=== PATIENT | male | born 1980 | race Caucasian/White ===

== ENCOUNTER → 2024-08-19 15:32 | Outpatient (REF) | payer BC, SELFPAY | LOC: HWRAD 15:32 | PROVIDERS: ATTENDING PHYSICIAN Internal Medicine Geriatric Medicine | DX: R05.3 Chronic cough (principal); U07.1 COVID-19 | CPT/HCPCS: 71046 ==

== ENCOUNTER 2024-08-20 16:22 | Emergency (ER) | payer BC, SELFPAY ==
[2024-08-20 16:28] VITALS: BP 143/95
[2024-08-20 17:00] VITALS: BP 155/92
[2024-08-20 17:06] LABS: % Basophils 0.7 % (0-2); % Eosinophils 0.4 % (0-6); % Immature Granulocytes 2.5 % (0-0.5); % Lymphocytes 10.4 % (20.5-51.1); % Monocytes 19.4 % (1.7-9.3); % Neutrophils 66.6 % (42.2-75.2); Absolute Basophils 0.1 10^3/uL (0-0.2); Absolute Immature Granulocytes 0.2 10^3/uL (0-0.05); Absolute Lymphocytes 0.8 10^3/uL (1.2-3.4); Absolute Monocytes 1.5 10^3/uL (0.1-0.6); Absolute Neutrophils 5.1 10^3/uL (1.4-6.5); Hemoglobin 12.1 g/dL (13.0-18.0); Mean Corp Hgb Conc. 33.6 g/dL (33.0-37.0); Mean Corpuscular Hgb 23.7 pg (27.0-31.0); Mean Corpuscular Volume 70.6 fL (80.0-94.0); Nucleated Red Blood Cells % 0 % (-); Platelet Count 288 10^3/uL (130-400); Red Cell Dist. Width 15.7 % (11.5-14.5); White Blood Cell Count 7.7 10^3/uL (4.8-10.8)
--- NOTE | 2024-08-20 17:25 | ED.GENMED ---
History of Present Illness
General
Chief Complaint: Breathing Problem
Time Seen by Provider: 08/20/24 16:41
History of Present Illness
History of Present Illness:
44-year-old man with history of chronic granulomatous disease followed by immunology at [facility] presenting to the emergency department with pneumonia. Patient states that 3 weeks ago he was diagnosed with COVID. He has had a persistent cough. 5 days
ago he had outpatient blood work which was unremarkable. However 3 days ago he developed fevers cough posttussive emesis and decreased p.o. He had an x-ray done yesterday which did show a right upper lobe pneumonia. His nursing educator called in a
prescription for Cipro for 3 weeks. He does have a new PCP who also called in Levaquin and told him to come in here for further evaluation. Patient states that with his pneumonia they are pretty aggressive as he does have history of fungal
pneumonias that usually require sputum cultures and bronchoscopy. However his nursing educator believes that this is likely bacterial infection. He does state that he does feel better than he did yesterday. He denies any chest pain or shortness of
breath. No nausea or vomiting. He has not needed to be admitted for his pneumonia in the past before. He does state that he has good follow-up with both his primary care doctor and nursing educator however they were just concerned given the fever
that started a few days ago and the chest x-ray
Past History
Past History
ED Past Medical History: Other (Pneumonia)
ED Past Surgical History: Other (Right lobectomy)
Social History
Living: with family
Employment: Employed
Phy Exam
Physical Exam
Physical Exam:
GENERAL: in no acute distress
HEENT: normocephalic, extraocular movements intact, moist oral mucosa
NECK: normal inspection
RESPIRATORY: no respiratory distress, crackles at the left upper lobe
CARDIOVASCULAR: regular rate and rhythm
ABDOMEN/: soft, non-distended, non-tender to palpation, no rebound or guarding
EXTREMITIES: non-tender, no edema/swelling
NEUROLOGIC: awake and alert, moves all extremities
SKIN: warm
Scores
Heart Failure Risk
Heart Failure Risk Score: Not Applicable
Course
Orders/Labs/Results
Orders:
Orders
08/20/24 16:46
CR Chest - 2 Views Urgent
Comment:
Reason For Exam: cough
08/20/24 17:01
Basic Metabolic Panel Urgent
Complete Blood Count/With Diff Urgent
Abnormal Lab Results
08/20/24
17:01
Hgb 12.1 L g/dL
(13.0-18.0)
Hct 36.0 L %
(39.0-52.0)
MCV 70.6 L fL
(80.0-94.0)
MCH 23.7 L pg
(27.0-31.0)
RDW 15.7 H %
(11.5-14.5)
Abs Immat Gran (auto) 0.2 H 10^3/uL
(0-0.05)
Absolute Lymphs (auto) 0.8 L 10^3/uL
(1.2-3.4)
Absolute Monos (auto) 1.5 H 10^3/uL
(0.1-0.6)
Immature Gran % 2.5 H %
(0-0.5)
Lymphocytes % 10.4 L %
(20.5-51.1)
Monocytes % 19.4 H %
(1.7-9.3)
Chloride 96 L mmol/L
(98-107)
Carbon Dioxide 21 L mmol/L
(22-30)
Glucose 103 H mg/dl
(70-99)
08/20/24 17:01
08/20/24 17:01
Vital Signs
Initial and Last Documented VS:
Initial Vital Signs
Temp Pulse Resp BP Pulse Ox
98.5 F 110 18 143/95 95
08/20/24 16:28 08/20/24 16:28 08/20/24 16:28 08/20/24 16:28 08/20/24 16:28
Last Documented Vital Signs
Temp Pulse Resp BP Pulse Ox
98.5 F 99 20 155/92 98
08/20/24 16:28 08/20/24 17:00 08/20/24 17:00 08/20/24 17:00 08/20/24 17:06
MDM/Problems Addressed
Differential Diagnosis Includes:
Patient is a 44-year-old male with history of chronic granulomatous disease on Bactrim and antifungal prophylactically presenting to the emergency department with pneumonia seen on outpatient chest x-ray. Vitals here notable for room air of 95%.
Exam does show left upper lobe crackles. Differential consists of pneumonia versus viral infection. Will check blood work and chest x-ray. Ambulatory pulse ox was normal. Patient does feel comfortable going home and states that he would not have
came in himself and is only coming at the advisory of his primary care doctor. He states that usually his pneumonias are like this and he can manage as outpatient. Given his history of fungal pneumonia and needing a bronchoscopy I did offer
patient admission for IV antibiotics and culture to make sure patient it is not a fungal pneumonia however patient and his nursing educator likely believe that his bacterial patient would prefer to be discharged home if everything else is okay.
*Critical Care Note
Total Time (30-74mins, 75-104mins- exclusive of procedures): Not Applicable
Update Note
Update Note:
Blood work notable for normal white count. His BMP is unremarkable. Chest x-ray per my interpretation does show left upper lobe pneumonia. This is consistent with a saw on x-ray yesterday. Patient advised to take the antibiotics as prescribed by
his nursing educator. Strict return precautions given.
ED Attending Note
-
Portions of this chart may have been created with voice recognition software.� Occasional wrong word or��sound alike� substitutions may have occurred due to the inherent limitations of voice recognition software.
Discharge Plan
Departure
Patient Disposition: Home (Routine Discharge)
Date of Disposition: 08/20/24
Time of Disposition: 18:34
Patient with high blood pressure during this ER visit?: No
Discharge Problem:
Pneumonia
Prescriptions:
No Action
diphenhydramine HCl [Banophen] 25 MG capsule
25 mg PO Q4HPRN PRN (Reason: allergic reaction) Qty: 10 0RF
prednisone 20 MG tablet
40 mg PO DAILY Qty: 8 0RF
famotidine 20 MG tablet
20 mg PO DAILY Qty: 10 0RF
epinephrine [EpiPen] 0.3 MG/0.3/SYRINGE auto-injector
0.3 mg IM PRN PRN (Reason: difficulty breathing) Qty: 1 0RF
Referrals:
Elvin Hooker MD [Family Provider] -
Activity Restrictions/Additional Instructions:
You were seen in the Emergency Department today for pneumonia. While you were here we performed blood work, which was reassuring. Please take the ciprofloxacin that your nursing educator prescribed
We would like for you to follow up with your primary care physician for further evaluation. If you experience fever, worsening of your symptoms, or develop any other new or concerning symptoms, please return to the Emergency Department immediately.
Please see the attached sheet for additional information.
Interventions
Interventions:
*Risk Screen - Suicide Last Done: 08/20/24 16:28
*General Assessment Last Done: 08/20/24 16:28
*Neglect/Abuse Screening Last Done: 08/20/24 16:28
ED- Fall Risk Assessment Last Done: 08/20/24 17:06
ED- Cardiac Assessment Last Done: 08/20/24 17:06
ED- Pulmonary Assessment Last Done: 08/20/24 17:06
Discharge Date and Time
Print Language: KISWAHILI
[2024-08-20 17:33] LABS: Blood Urea Nitrogen 15 mg/dl (9-20); Calcium 8.7 mg/dl (8.4-10.2); Carbon Dioxide 21 mmol/L (22-30); Chloride 96 mmol/L (98-107); Glucose 103 mg/dl (70-99); Potassium 3.7 mmol/L (3.5-5.1); Sodium 135 mmol/L (135-145); eGFR > 60.00
[2024-08-20 18:41] VITALS: BP 134/89
== END 2024-08-20 18:42 | disposition home or self-care (01) ==
LOC: EMR 16:22
PROVIDERS: EMERGENCY PHYSICIAN Student in an Organized Health Care Education/Training Program; FAMILY PHYSICIAN Internal Medicine Geriatric Medicine
DX: J18.9 Pneumonia, unspecified organism (principal); D71 Functional disorders of polymorphonuclear neutrophils; Z86.16 Personal history of COVID-19
CPT/HCPCS: 99283; 71046; 80048; 85025

== ENCOUNTER 2024-08-29 20:54 | Inpatient (IN) | payer BC, SELFPAY ==
[2024-08-29 17:17] VITALS: BP 123/82
[2024-08-29 17:47] LABS: % Basophils 0.7 % (0-2); % Eosinophils 1.5 % (0-6); % Lymphocytes 12.5 % (20.5-51.1); % Monocytes 7.8 % (1.7-9.3); % Neutrophils 73.5 % (42.2-75.2); Absolute Basophils 0.1 10^3/uL (0-0.2); Absolute Eosinophils 0.2 10^3/uL (0-0.7); Absolute Immature Granulocytes 0.6 10^3/uL (0-0.05); Absolute Lymphocytes 1.9 10^3/uL (1.2-3.4); Absolute Monocytes 1.2 10^3/uL (0.1-0.6); Hematocrit 38.5 % (39.0-52.0); Hemoglobin 12.6 g/dL (13.0-18.0); Mean Corp Hgb Conc. 32.7 g/dL (33.0-37.0); Mean Corpuscular Volume 73.5 fL (80.0-94.0); Mean Platelet Volume 9.6 fL (7.4-10.4); Nucleated Red Blood Cells % 0 % (-); Platelet Count 419 10^3/uL (130-400); Red Blood Cell Count 5.24 10^6/uL (4.70-6.10); Red Cell Dist. Width 16.2 % (11.5-14.5); White Blood Cell Count 14.9 10^3/uL (4.8-10.8)
[2024-08-29 17:59] LABS: ALT (SGPT) 49 U/L (0-50); AST (SGOT) 32 U/L (17-59); Albumin 4.1 g/dl (3.5-5.0); Alkaline Phosphatase 189 U/L (38-126); Blood Urea Nitrogen 11 mg/dl (9-20); Carbon Dioxide 21 mmol/L (22-30); Chloride 101 mmol/L (98-107); Glucose 101 mg/dl (70-99); Potassium 4.5 mmol/L (3.5-5.1); Sodium 139 mmol/L (135-145); Total Bilirubin 0.5 mg/dl (0.2-1.3); Total Protein 7.1 g/dl (6.3-8.2); eGFR > 60.00
[2024-08-29 18:28] VITALS: BMI 24.2
[2024-08-29 18:32] VITALS: BP 123/92
--- NOTE | 2024-08-29 18:32 | ED.GENMED ---
History of Present Illness
General
Chief Complaint: Breathing Problem
Time Seen by Provider: 08/29/24 18:32
History of Present Illness
History of Present Illness:
TIME OF INITIAL ENCOUNTER: 6:40 PM
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 Approximately 11 days ago, he was having fevers and had an abnormal chest x-ray
that confirmed pneumonia (his boiler riveter had already started him on antibiotics including Cipro and then Levaquin). Although he no longer has fevers, he still has ongoing shortness of breath. He is concerned that he may have a fungal infection.
EXAM:
GENERAL: Well appearing in no distress
HEENT: Moist oral mucosa
CARDIOVASCULAR: No murmurs, normal heart rate, regular rhythm, No chest wall tenderness
PULMONARY: No respiratory distress, breath sounds are clear and equal, I question some faint rales on the right side but no definite rales on the left side
ABDOMEN: Soft with no peritoneal signs, no tenderness
NEUROLOGIC: Excellent strength all extremities, no coordination deficits
PSYCHIATRIC: Appropriate mental status, normal insight and judgement
EXTREMITIES: Nontender, no edema, moves all extremities equally
SKIN: No rash, no lesions
NUMBER AND COMPLEXITY OF PROBLEMS ADDRESSED AT THE ENCOUNTER
� Chronic conditions affecting care: Chronic granulomatous disease had right lobectomy at age 1
� Acute Exacerbation and/or Progression of Chronic Illness: This is an acute problem
� Differential Diagnosis includes: Bacterial pneumonia, viral pneumonia, fungal pneumonia, mass
AMOUNT AND/OR COMPLEXITY OF DATA TO BE REVIEWED AND ANALYZED
� I performed an independent evaluation of and my interpretation is:
EKG:
CT: I personally reviewed CT imaging of the chest which shows large left upper lobe consolidation
X-rays: Chest x-ray shows moderate to large dense airspace consolidation consistent with pneumonia which is increased in size
Laboratory Studies: White count 14.9, hemoglobin 12.6, chemistries unremarkable however alk phos is 189
Other:
� Review of other/old records: I reviewed the notes from last ED visit as well as the x-ray as an outpatient that showed left upper lobe/lingular pneumonia
� Clinical information was obtained by an independent historian: I spoke to the at bedside
� Prescriptions/Medications Considered but not given:
� Further testing considered but not performed:
RISK OF COMPLICATIONS AND/OR MORBIDITY OR MORTALITY OF PATIENT MANAGEMENT
� Social determinants of health affecting care: Lives at home
� Discussion with other providers: I discussed case with Dr. Aguilar who recommends obtaining sputum�a small amount was obtained after induced with saline at approximately 8:30 PM
� Escalation of care including admission/observation vs risk of discharge considered: I have asked the nurse to obtain sputum; planning admission to the hospital for IV antibiotics however still awaiting sputum. CT imaging
obtained.
ANY OTHER UPDATES:
8:03 PM: I have asked hospitalist for admission to the hospital
Past History
Past History
ED Past Medical History: Other (Pneumonia)
ED Past Surgical History: Other (Right lobectomy)
Social History
Living: with family
Employment: Employed
Phy Exam
Physical Exam
Physical Exam:
See HPI
Scores
Heart Failure Risk
Heart Failure Risk Score: Not Applicable
Course
Orders/Labs/Results
Orders:
Orders
08/29/24 17:21
Chest [CR Chest - 2 Views ] Urgent
Comment: recent pna
Reason For Exam: cough
08/29/24 17:34
Complete Blood Count/With Diff Urgent
Comprehensive Metabolic Panel Urgent
08/29/24 18:55
CT Chest With Iv Contrast Urgent
Comment:
Reason For Exam: L consolidation failing outpt mngt
08/29/24 19:00
Sodium Chloride 3% INH [Sodium Chloride 3% For Inhalation] 1 vial INH R NOW STA
Induced Sputum [RESP] Urgent
Quantity: 1
08/29/24 20:06
Lactic Acid Q4H
Comment: CANCEL 2nd LACTIC ACID IF 1st LACTIC ACID IS LESS THAN 2
Blood Culture Q30M
JOSHUA Source: Blood/Venous
Specimen Description:
Blood Culture Q30M
JOSHUA Source: Blood/Venous
Specimen Description:
08/29/24 20:28
Admit/Transfer Patient As Directed
Co-Sign Provider:
Level of Care: Inpatient admission
Assign to:: Medical/Surgical
Physician / Group: suzie
Diagnosis: pneumonia
Reason for Hospitalization: pneumonia
Expected length of stay greater than two midnights?: Yes
ELOS- Estimated Length of Stay in days: 3
I certify the patient meets the requirements for IP care: Yes
Code Status As Directed
Resuscitation Status: Full Code
PRN Pain Medication Management As Directed
May give lesser potent ordered pain med per pt: Yes
preference::
Protocol:: Medication orders for pain may be administered in a
manner that supports deferring to patient preference
when the pt is:
- Requesting an ordered lesser potent pain medication.
Least to most potent pain medications are defined
as: acetaminophen < NSAID < tramadol < opioids
(morphine, oxycodone, hydromorphone).
- Requesting a lesser dose of the same medication IF
ORDERED.
- Requesting a less intrusive route of administration
if both routes are prescribed by the provider (PO <
IV).
08/29/24 20:36
INFECTIOUS DISEASE CONSULT Routine
Consulting Provider: Manuel Aguilar
Was physician already notified: Yes
PULMONARY CONSULT Routine
Consulting Provider: Rachid Robledo
Was physician already notified: Yes
08/29/24 21:01
Sputum Culture [Respiratory Culture/Gram Stain] Urgent
JOSHUA Source: Sputum
Specimen Description:
Date Specimen was Collected: 08/29/24
Time Specimen was Collected: 20:59
08/29/24 23:00
Lactic Acid Q4H
Comment: CANCEL 2nd LACTIC ACID IF 1st LACTIC ACID IS LESS THAN 2
Abnormal Lab Results
08/29/24
17:34
WBC 14.9 H 10^3/uL
(4.8-10.8)
Hgb 12.6 L g/dL
(13.0-18.0)
Hct 38.5 L %
(39.0-52.0)
MCV 73.5 L fL
(80.0-94.0)
MCH 24.0 L pg
(27.0-31.0)
MCHC 32.7 L g/dL
(33.0-37.0)
RDW 16.2 H %
(11.5-14.5)
Plt Count 419 H 10^3/uL
(130-400)
Abs Immat Gran (auto) 0.6 H 10^3/uL
(0-0.05)
Absolute Neuts (auto) 11.0 H 10^3/uL
(1.4-6.5)
Absolute Monos (auto) 1.2 H 10^3/uL
(0.1-0.6)
Immature Gran % 4.0 H %
(0-0.5)
Lymphocytes % 12.5 L %
(20.5-51.1)
Carbon Dioxide 21 L mmol/L
(22-30)
Glucose 101 H mg/dl
(70-99)
Alkaline Phosphatase 189 H U/L
(38-126)
08/29/24 17:34
08/29/24 17:34
Vital Signs
Initial and Last Documented VS:
Initial Vital Signs
Temp Pulse Resp BP Pulse Ox
98.5 F 85 18 123/82 98
08/29/24 17:17 08/29/24 17:17 08/29/24 17:17 08/29/24 17:17 08/29/24 17:17
Last Documented Vital Signs
Temp Pulse Resp BP Pulse Ox
98.5 F 85 18 123/86 98
08/29/24 17:17 08/29/24 17:17 08/29/24 17:17 08/29/24 21:00 08/29/24 17:17
*Critical Care Note
Total Time (30-74mins, 75-104mins- exclusive of procedures): Not Applicable
ED Attending Note
-
Portions of this chart may have been created with voice recognition software.� Occasional wrong word or��sound alike� substitutions may have occurred due to the inherent limitations of voice recognition software.
Discharge Plan
Departure
Patient Disposition: Admit
Date of Disposition: 08/29/24
Time of Disposition: 20:20
Presentation/result/management discussed w/ accepting MD/DO: Hospitalist
Discharge Problem:
Pneumonia
Interventions
Interventions:
*Risk Screen - Suicide Last Done: 08/29/24 18:28
*General Assessment Last Done: 08/29/24 18:28
*Neglect/Abuse Screening Last Done: 08/29/24 18:28
ED- Fall Risk Assessment Last Done: 08/29/24 18:28
*ED COVID-19 Vaccine History Last Done: 08/29/24 18:28
ED- Cardiac Assessment Last Done: 08/29/24 18:28
ED- Pulmonary Assessment Last Done: 08/29/24 18:28
[2024-08-29 19:00] VITALS: BP 131/90
[2024-08-29 20:08] VITALS: BP 119/78
--- NOTE | 2024-08-29 20:10 | HPS.HSE ---
Family Physician
-
Family Physician:
Chief Complaint
-
sob/cough
History of Present Illness
44 year old with history of chronic granulomatous disease/immunosuppressant chronically on Bactrim and and posaconazole and is known to an director of assessment at [facility] presented to us with cough, fever and sob. patient stated fever was 10 days ago. no
fever since then. he was noted to have dry cough, sob which is progressively getting worse. Approximately 11 days ago, had an abnormal chest x-ray that confirmed pneumonia,his director of assessment prescribed cipro then changed to Levaquin. no fever since
then, but cough and sob persisted. denied FOLEY, dizzy or syncopal episode. denied chest pain. denied abdominal pain,n,v,d,denied dysuria or hematuria.
chest x ray with MODERATE to SEVERE LEFT UPPER LOBE PNEUMONIA which appears to have mildly increased since 08/20/2024. admitting for further managment.
Medical History
Past Medical History
Past Medical History: Reports Other
Additional Past Medical History:
granulomatous disease
Past Surgical History: Reports Other
Additional Past Surgical History:
right lower lobe lobectomy
wisdom tooth extraction
Social History
Tobacco: Non-smoker
Alcohol: None
Drug: None
Personal:
Living: With Family
Family History
Family History: Not pertinent
Allergies / Home Medications
Allergies reflects when Allergies were last updated in [facility].
Home Medications with original date entered in [facility]
Allergy/Medication List:
Allergies
Allergy/AdvReac Type Severity Reaction Status Date / Time
itraconazole [From [facility]] Allergy Rash Verified 08/29/24 17:19
Home Medications
acetaminophen 500 mg tablet 1,000 mg PO Q6HPRN PRN mild pain/fever 08/29/24
ciprofloxacin HCl 500 mg tablet 500 mg PO BID 08/29/24
posaconazole 100 mg tablet,delayed release 300 mg PO HS 08/29/24
sulfamethoxazole 800 mg-trimethoprim 160 mg tablet 1 tab PO BID 08/29/24
Review of Systems
-
Constitutional: Reports No Symptoms
EENT: Reports No Symptoms
Respiratory: Reports Cough and Trouble Breathing
Cardiac: Reports No Symptoms
Abdomen/GI: Reports No Symptoms
: Reports No Symptoms
Musculoskeletal: Reports No Symptoms
Skin: Reports No Symptoms
Neurological: Reports No Symptoms
Endocrine: Reports No Symptoms
Hematologic/Lymphatic: Reports No Symptoms
Psych: Reports No Symptoms
Physical Exam
Vital Signs
Vital Signs
Temp Pulse Resp BP Pulse Ox
98.5 F 85 18 123/92 98
08/29/24 17:17 08/29/24 17:17 08/29/24 17:17 08/29/24 18:32 08/29/24 17:17
Physical Exam
General: Well Developed, Well Nourished and No Apparent Distress
HEENT: NormoCephalic, Moist mucous membranes and Atraumatic
Respiratory: Clear
Cardiac: S1/S2 and Regular Rhythm; No Murmur or Rub
GI: Soft, Non Tender, Non Distended and Normal Bowel Sounds; No Organomegaly
Rectal: Deferred by Provider
Musculoskeletal: No Clubbing, No Cyanosis and No Edema
Skin: No Rash
Neuro: AO x 3 and Nonfocal/grossly intact
Psych: Calm
Laboratory Results
-
08/29/24 17:34
08/29/24 17:34
Laboratory Results
Total Bilirubin 0.5 mg/dl (0.2-1.3) 08/29/24 17:34
AST 32 U/L (17-59) 08/29/24 17:34
ALT 49 U/L (0-50) 08/29/24 17:34
Alkaline Phosphatase 189 U/L (38-126) H 08/29/24 17:34
Data Reviewed
-
Diagnostic Radiology: Report Reviewed by me
Lab Data: Labs Reviewed by me
Impression/Plan
-
#community acquired pneumonia
-wbc 14.9
-chest x ray with MODERATE to SEVERE LEFT UPPER LOBE PNEUMONIA which appears to have mildly increased since 08/20/2024.
-chest CT pending
-blood culture sent from ER
-sputum culture
-obtain TB quantferon
-hold iv abx until CT resulted
-ID and pulmonology consulted
#chronic granulomatous disease
-s/p right lower lobectomy
-chronically on Bactrim and Posaconazole.
-follows [facility] director of assessment
-will continue Bactrim, and cipro
#DVT prophylaxis
-Lovenox
#CODE status
-full code
[2024-08-29] MEDS: SODIUM CHLORIDE 3% FOR INHALATION 1 VIAL INH (20:15)
[2024-08-29 20:25] LABS: Lactic Acid 0.8 mmol/L (0.7-2.0)
--- NOTE | 2024-08-29 20:35 | W.PN.UPDATE ---
Update Note
Progress Note Update
Patient seen in conjunction with JOSEPH. I agree with the findings on history and physical. I agree with the assessment and plan unless stated otherwise.
This is a 44-year-old male with history of chronic rheumatoid disease immunocompromise state status post childhood right lower lobectomy and H2, recurrent infections who has had fungal infection and is now currently maintained on posaconazole for at
least 5 years. He has been on Bactrim suppression for over 40 years. He reports he had COVID-19 infection 3 weeks ago and after resolution of these. He started having fevers and shortness of breath 10 days ago. At that time he was diagnosed with
a left upper lobe pneumonia and was started on Levaquin. After discussion between his primary care and patch setter the patient was placed on ciprofloxacin the second day. He has been on ciprofloxacin now for approximately 10 days. Symptoms
mostly been persistent cough and shortness of breath. He has denied fevers but patient has been taking Tylenol to help him sleep. He denies dizziness or lightheadedness. He denies any other symptoms. He has cough that is now relatively dry. He
denied any hemoptysis. He has no recent travels. He has no known sick contacts. He has no night sweats or weight loss. He has no prior history of TB.
The emergency department the patient was afebrile, blood pressure was stable at 120/78 with a pulse of 98% on room air. Chest x-ray shows large left upper lobe consolidation that has been present and appears increased since August 20. He has a
white count of 15,000 with a hemoglobin of 12 and plate count of 419. Electrolytes BUN/creatinine are within normal limits.
Assessment and plan
1. Non-resolving pneumonia - LEATHA pneumonia in immunocompromised patient who appears to be failing outpatient antibiotics. He has normal oxygenation, hemodynamically stable and non-toxic appearing. Suspect resistant bacteria vs fungal infection.
History of fungal pneumonia about 5 years ago for which he is on suppressive posaconazole.
- admit to med/surg
- continue current cipro, bactrm and posaconazole
- sputum gram stain, culture and afb
- quantiferon testing
- galactomannan
- CT chest, if diagnostic for fungal infection will discuss new antifungal with ID, otherwise continue current meds pending tissue sampling
- pulmonary consultation
- ID consulted and aware
DVT PPX - lovenox sq
Code status - Full
[2024-08-29 21:00] VITALS: BP 123/86
[2024-08-29] MEDS: BACTRIM DS 800 MG/160 MG 1 TABLET PO (22:28)
[2024-08-29] MEDS: CIPRO 500 MG PO (22:28)
[2024-08-29] MEDS: MUCINEX 600 MG PO (22:28)
[2024-08-29 22:30] VITALS: BP 133/75
[2024-08-29] MEDS: NON-FORMULARY ITEM 300 MG PO (22:54)
[2024-08-29] MEDS: ROBITUSSIN DM 5 ML PO (23:32)
[2024-08-30 06:00] VITALS: BMI 23.6
[2024-08-30 06:42] LABS: Hematocrit 36.5 % (39.0-52.0); Hemoglobin 11.9 g/dL (13.0-18.0); Mean Corp Hgb Conc. 32.6 g/dL (33.0-37.0); Mean Corpuscular Hgb 24.5 pg (27.0-31.0); Mean Corpuscular Volume 75.1 fL (80.0-94.0); Mean Platelet Volume 9.6 fL (7.4-10.4); Platelet Count 334 10^3/uL (130-400); Red Blood Cell Count 4.86 10^6/uL (4.70-6.10); Red Cell Dist. Width 16.1 % (11.5-14.5)
[2024-08-30 06:59] LABS: Blood Urea Nitrogen 11 mg/dl (9-20); Calcium 8.9 mg/dl (8.4-10.2); Carbon Dioxide 23 mmol/L (22-30); Chloride 101 mmol/L (98-107); Estimated Creatinine Clearance 96 ml/min; Glucose 102 mg/dl (70-99); Potassium 4.4 mmol/L (3.5-5.1); Sodium 136 mmol/L (135-145); eGFR > 60.00
[2024-08-30 07:25] VITALS: BP 115/74
--- NOTE | 2024-08-30 07:54 | W.PN.HOSP.TC ---
Today's Communication/Plan
-
cont abx as per ID
follow up cultures
prn antitussives
Assessment / Plan
Assessment / Plan
Physical Exam
General: Well Developed, Well Nourished and No Apparent Distress
HEENT: NormoCephalic, Moist mucous membranes and Atraumatic
Respiratory: Clear
Cardiac: S1/S2 and Regular Rhythm; No Murmur or Rub
GI: Soft, Non Tender, Non Distended and Normal Bowel Sounds; No Organomegaly
Musculoskeletal: No Clubbing, No Cyanosis and No Edema
Skin: No Rash
Neuro: AO x 3 and Nonfocal/grossly intact
Psych: Calm
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 onset 10 days ago. Approximately 11 days ago, had an abnormal chest x-ray that
confirmed pneumonia, his merchandise processor prescribed cipro then changed to Levaquin. no fever since then, but cough and sob persisted. Denied FOLEY, dizzy or syncopal episode. denied chest pain. denied abdominal pain,n,v,d,denied dysuria or hematuria.
chest x ray with MODERATE to SEVERE LEFT UPPER LOBE PNEUMONIA which appears to have mildly increased since 08/20/2024. admitted for further management.
#community acquired pneumonia
-wbc 14.9
-chest x ray with MODERATE to SEVERE LEFT UPPER LOBE PNEUMONIA which appears to have mildly increased since 08/20/2024.
-follow blood suputum cultures
-ID and Pulm eval appreciated
-cipro switched to IV ceftriaxone azithromycin as per ID
#chronic granulomatous disease
-s/p right lower lobectomy
-chronically on Bactrim and Posaconazole,cont
-follows [facility] merchandise processor
CT chest appreciated
1. LARGE 10.2 cm DENSE LEFT UPPER LOBE AIRSPACE CONSOLIDATION (predominantly in the superior segment of the lingula). Diagnostic possibilities are (1) SEVERE LEFT UPPER LOBE PNEUMONIA, (2) less likely an inflammatory airspace consolidation, or (3)
less likely lung cancer.
2. New 6.3 mm solid pulmonary nodule in the posterior segment of the right upper lobe.
3. Mild scarring in the lateral basilar segment of the right lower lobe at the site of a suspected previous pulmonary wedge resection.
4. Mild left-sided mediastinal and left hilar lymphadenopathy.
5. Moderate splenomegaly.
6. Multiple small low-attenuation lesions in the liver. Diagnostic possibilities are (1) benign hepatic tumors, (2) inflammatory or infectious hepatic lesions, or (3) hepatic malignancy (metastatic disease or lymphoma).
Repeat CT chest in 6 months as per pulm
Regarding Hepatic lesions will obtain CT Abd w/ IV and oral contrast to further evaluate prior to discharge. Holding off for now to minimize radiation and contrast exposure
#DVT prophylaxis
-Lovenox
#CODE status
-full code
I spent a total of 40 minutes with the patient or on the floor. More than 50% of this time involved counseling and coordination of care.
Anticipated Discharge: 24 - 48 hours
Subjective/Interval History
-
Date of Service: August 30, 2024
No acute distress. Appears comfortable at this time. Couging persists.
Objective Data
-
Labs:
Laboratory Results
08/30/24
06:13
WBC 11.0 H
Hgb 11.9 L
Hct 36.5 L
Plt Count 334 D
Sodium 136
Potassium 4.4
Chloride 101
Carbon Dioxide 23
BUN 11
Creatinine 0.9
Glucose 102 H
Calcium 8.9
Vital Signs:
Vital Signs
Temp Pulse Resp BP Pulse Ox
98 F 82 18 133/75 96
08/29/24 22:30 08/29/24 22:30 08/29/24 22:30 08/29/24 22:30 08/29/24 22:30
I&O
08/29/24 08/30/24 08/31/24
06:59 06:59 06:59
Intake Total 480 / 480
Balance 480 / 480
[2024-08-30] MEDS: CIPRO 500 MG PO (07:57)
[2024-08-30] MEDS: BACTRIM DS 800 MG/160 MG 1 TABLET PO ×2 (07:57→20:13)
[2024-08-30] MEDS: MUCINEX 600 MG PO ×2 (07:57→20:13)
--- NOTE | 2024-08-30 09:40 | CON.PUL ---
Consultation
Consultation Request
Date/Time Consultation Requested: 08/30/2024-8 AM
Date/Time Consultation Performed: 08/30/2024-9 AM
Requesting Provider: Hospitalist
Performing Provider: Dr. Torres
Reason for Consultation: Pneumonia
Medical History
-
Chief Complaint: Shortness of breath and cough
History of Present Illness:
44-year-old with history of chronic granulomatous disease/immunosuppressed chronically on Bactrim and antifungals followed by immunology at [facility] presented with 10 days of fever, cough, shortness of breath unresponsive to outpatient Cipro-admitted for
pneumonia/isolated to rule out TB-pulmonary consulted for pneumonia/shortness of breath/cough 08/30/2024.. The patient continues to complain of mostly nonproductive cough. He has mild shortness of breath. He does not complain of chest pain, chest
tightness, wheezing, productive cough, abdominal pain, nausea, weakness or lower extremity swelling.
Past Medical History
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 Right lower lobectomy. [place] teeth extraction.)
Social History
Tobacco: Non-smoker
Alcohol: None
Drug: None
Personal:
Living: With Family
Occupational Exposures: No known asbestos exposure
Environmental Exposures: No known tuberculosis exposure
Family History
Family History: Reviewed & Not Pertinent
Allergies / Home Medications
Allergies
Allergy/AdvReac Type Severity Reaction Status Date / Time
itraconazole [From Onmel] Allergy Rash Verified 08/29/24 17:19
Home Medications
�Medication �Instructions �Recorded �Confirmed �Last Taken �Type
acetaminophen 500 mg tablet 1,000 mg PO Q6HPRN PRN mild 08/29/24 08/29/24 08/29/24 01:30 History
pain/fever
ciprofloxacin HCl 500 mg tablet 500 mg PO BID 08/29/24 08/29/24 08/29/24 12:00 History
posaconazole 100 mg tablet,delayed 300 mg PO HS 08/29/24 08/29/24 08/28/24 22:00 History
release
sulfamethoxazole 800 1 tab PO BID 08/29/24 08/29/24 08/29/24 12:00 History
mg-trimethoprim 160 mg tablet
Review of Systems
-
Unable to Obtain full review of systems at this time due to: Other (Per HPI)
Vitals / Labs / Diagnostic Testing
Vital Signs
Temp Pulse Resp BP Pulse Ox
97.9 F 67 20 115/74 97
08/30/24 07:25 08/30/24 07:25 08/30/24 07:25 08/30/24 07:25 08/30/24 07:25
Lab Data
08/30/24 06:13
08/30/24 06:13
Microbiology
08/29/24 21:01 Sputum Respiratory Culture - Final
08/29/24 21:01 Sputum Gram Stain - Final
08/29/24 22:52 Urine Legionella Urinary Antigen - Final
Negative for Legionella pneumophila Serogroup 1 antigen.
A negative result does not rule out the possiblity of
Legionella infection due to other serogroups or species of
Legionella. Clinical correlation is recommended.
Diagnostic Testing:
Physical Exam
-
Exam:
Well-nourished and well-developed in no apparent distress
HEENT-atraumatic, normocephalic
Neck-supple, no JVD, no bruit
Heart-regular rate and rhythm-no murmurs, rubs or gallops
Chest-clear to auscultation, no wheezes, crackles
Back-no tenderness
Abdomen-soft, nontender, nondistended, no hepatosplenomegaly
Extremities-no cyanosis, clubbing, edema and good peripheral pulses
Integument-intact, no rashes, lesions or ecchymosis
Neurology-alert and oriented, nonfocal motor and sensory exam
Assessment
-
44-year-old with history of chronic granulomatous disease/immunosuppressed chronically on Bactrim and antifungals followed by immunology at [facility] presented with 10 days of fever, cough, shortness of breath unresponsive to outpatient Cipro-admitted for
pneumonia/isolated to rule out TB-pulmonary consulted for pneumonia/shortness of breath/cough 08/30/2024.
Community-acquired pneumonia unresponsive to outpatient Cipro in immunocompromised patient
Leukocytosis
Mild xphdvi-[id number]-[id number] 11.9
Conditions present prior to admission:
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
Bronchiectasis-mild left lower lobe
Pulmonary nodule-incidentally noted CT 2016-3 mm right middle lobe and new 6.3 mm pulmonary nodule right upper lobe 08/29/2024
Right lower lobectomy.
[place] teeth extraction.
Plan
History consistent with community-acquired pneumonia-likely bacterial, however, with his chronic granulomatous disease bacterial and fungal infections and even tuberculosis are considerations
Supplemental oxygen as needed
Isolation for now
Nebulizers if needed-currently not bronchospastic
Aspiration precautions
Antitussives as needed
Infectious disease evaluation-pending
Isolation
Sputum for AFB x 3
QuantiFERON test pending
Urine Legionella negative
Sputum culture 08/29/2024-few WBCs, mixed bacteria
Blood cultures negative
Empiric antibiotics-currently on chronic Bactrim in addition to Cipro and posaconazole chronically
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
Frequent signs of infection include lung, skin, lymph nodes and liver
Comment organisms include Aspergillus, staff aureus, Pseudomonas cepacia, Serratia, and nocardia
Chronic Bactrim and posaconazole continues
DVT prophylaxis-on Lovenox
Outpatient pulmonary follow-up of pneumonia and pulmonary nodules-recommend CT chest in 6 months
Diagnostic data:
Chest x-ray 08/19/2024-left upper lobe pneumonia
Chest x-ray 08/29/2024-moderate to severe left upper lobe pneumonia mildly increased since 08/20/2024
CT chest 08/03/2017-mild left lower lobe bronchiectasis, small noncalcified right middle lobe pulmonary nodule measuring 3 [address] chest 08/29/2024-large 10 cm area of dense left upper lobe airspace consolidation, new 6.3 mm solid pulmonary nodule right upper lobe, moderate splenomegaly, multiple small low-attenuation lesions in the liver
Data Reviewed
-
EKG: Report reviewed by me
Radiology: Image personally visualized and interpreted and Report reviewed by me
CT Scan: Image personally visualized and interpreted and Report reviewed by me
Medical Tests (Nuc Med, Echo etc): Report reviewed by me
Labs: Labs reviewed by me
Total Time Spent with Patient (in minutes): 65
--- NOTE | 2024-08-30 11:53 | CON.ID ---
Consultation
-
Date/Time Consultation Requested: August 29, 20242035
Date/Time Consultation Performed: August 30, 2024 1200
Requesting Provider: Dr. Nesbitt
Performing Provider: Dr. Natalia Noguera
Reason for Consultation: Pneumonia
Chief Complaint / Past History
Chief Complaint
Worsening cough.
History of Present Illness
History obtained from patient and review of outside records. 44-year-old male with history of chronic granulomatous disease diagnosed at age 5 due to frequent pneumonias, on prophylactic Bactrim, posaconazole who was diagnosed with COVID 19
infection 3 weeks ago when he developed dry cough and malaise. He was treated with Paxlovid and did improve. 2 weeks ago August 17 , the cough recurred with associated fever. He continued to be febrile the next day. His PCP ordered chest x-ray
which showed left upper lobe pneumonia. PCP prescribed levofloxacin. He took 1 dose of the levofloxacin on August 19. His ob/gyn physician also prescribed ciprofloxacin and recommended he be evaluated in the ER. He presented to [place] [facility] on
August 20. Chest x-ray again showed left upper lobe infiltrate. ED prescribed prednisone and he was discharged. Patient stopped the levofloxacin and continued on the ciprofloxacin. Fever resolved. However cough has not improved. He continues
to have dry cough which is getting worse to the point that he has posttussive emesis. He presented back to the ER on August 29. CT of the chest shows large 10.2 cm dense left upper lobe airspace consolidation predominantly in the superior
segment of the lingula. There are other small pulmonary nodules. Multiple small low-attenuation lesions in the liver. Patient denies ill contacts. He is up-to-date with his pneumonia vaccine. He lives with his , 14-year-old and 11-year-old
children. He works from home. He follows CGD measures - avoiding gardening/soil, hiking, swimming in fresh water. No history of travel to tuberculosis endemic areas. Last travel was to [place] in the summer. He has never been homeless or in
longterm. He takes abx prophylaxis with dental prcedures. No chills. Has chronic sweats x many years. 10 pound weight loss past 3 weeks from not eating as much. No FOLEY/sinus congestion/sorethroat. No abd pain. No diarrhea. No urinary sxs. No rash.
Past History
Additional Past Medical History:
Chronic Granulomatous Disease dx'd age 5, follows with [facility], on prophylactic posaconazole, Bactrim
Right lower lobectomy due to pneumonia, empyema, age 1
Bronchiectasis
Mild intermittent reactive airway disease
hx RUL lung nodules (09/2021) s/p bronch 11/08/2021 ([facility]), norm exam; AFB cx neg, fungal cx neg, aerobic cx light growth resp jorge.
04/30/2022 CT chest ([facility]): 'small focus of subsegmental atelectasis along the posterior aspect and inferior aspect of RUL and lingula'
COVID 19 infection (07/2024), treated
Allergy History:
itraconazole [From Onmel] Allergy (Verified 08/29/24 17:19)
Rash
Medications Reviewed: Yes
Current Antibiotics:
Cipro
Social History
Tobacco: Non-Smoker
Alcohol: None
Drug: None
Personal:
Living: With Family
Employment: Employed ([employer], works from home)
Family History
Family History: Not Pertinent
Review of Systems
Review of Systems
General: Change in Appetite
HEENT: Negative Sinus Problems, Headache or Pharyngitis
Respiratory: Dyspnea and Cough; Negative Sputum Production
Gasteroenterology: Weight Loss (10 lbs from poor appetite)
Genital / Urological: Negative Dysuria or Flank Pain
Skin / Hair / Nails: Negative Rash
Neurological: Negative Dizziness
All systems: All other systems were reviewed and were negative
Vital Signs
Temp Pulse Resp BP Pulse Ox
97.9 F 67 20 115/74 97
08/30/24 07:25 08/30/24 07:25 08/30/24 07:25 08/30/24 07:25 08/30/24 07:25
Physical Exam
Physical Exam
Constitutional: No Acute Distress and Comfortable
Head: Other (No frontal or maxillary sinus tenderness)
Eyes: No Conjunctival Hemorrhage and Sclera Anicteric
Cardiovascular: Regular Rate and S1/S2
Pulmonary: Clear; Negative Wheezes, Rales, Rhonchi or Coarse
Gastrointestinal: Soft, Non Tender, Non Distended and Normal Bowel Sounds
Genito-Urinary: Negative CVA Tenderness
Extremities: Negative Edema
Skin: Negative Rash
Neurological: AO x 3; Negative Meningeal Signs
Lab / Diagnostic Study Results
08/30/24 06:13
08/30/24 06:13
Abs Immat Gran (auto) 0.6 10^3/uL (0-0.05) H 08/29/24 17:34
Absolute Neuts (auto) 11.0 10^3/uL (1.4-6.5) H 08/29/24 17:34
Absolute Lymphs (auto) 1.9 10^3/uL (1.2-3.4) 08/29/24 17:34
Absolute Monos (auto) 1.2 10^3/uL (0.1-0.6) H 08/29/24 17:34
Absolute Basos (auto) 0.1 10^3/uL (0-0.2) 08/29/24 17:34
Immature Gran % 4.0 % (0-0.5) H 08/29/24 17:34
Neutrophils % 73.5 % (42.2-75.2) 08/29/24 17:34
Lymphocytes % 12.5 % (20.5-51.1) L 08/29/24 17:34
Monocytes % 7.8 % (1.7-9.3) 08/29/24 17:34
Eosinophils % 1.5 % (0-6) 08/29/24 17:34
Basophils % 0.7 % (0-2) 08/29/24 17:34
Lactic Acid Cancelled 08/29/24 23:00
Microbiology Results
Micro:
08/29/24 21:01 Respiratory Culture - Final
Sputum Gram Stain - Final
08/29/24 22:52 Legionella Urinary Antigen - Final
Urine Negative for Legionella pneumophila Serogroup 1 antigen.
A negative result does not rule out the possiblity of
Legionella infection due to other serogroups or species of
Legionella. Clinical correlation is recommended.
08/29/24 20:06 Blood Culture - Pending
Blood/Venous
08/29/24 20:06 Blood Culture - Pending
Blood/Venous
08/29/[address]:
1. LARGE 10.2 cm DENSE LEFT UPPER LOBE AIRSPACE CONSOLIDATION (predominantly in the superior segment of the lingula). Diagnostic possibilities are (1) SEVERE LEFT UPPER LOBE PNEUMONIA, (2) less likely an inflammatory airspace consolidation, or (3)
less likely lung cancer.
2. New 6.3 mm solid pulmonary nodule in the posterior segment of the right upper lobe.
3. Mild scarring in the lateral basilar segment of the right lower lobe at the site of a suspected previous pulmonary wedge resection.
4. Mild left-sided mediastinal and left hilar lymphadenopathy.
5. Moderate splenomegaly.
6. Multiple small low-attenuation lesions in the liver. Diagnostic possibilities are (1) benign hepatic tumors, (2) inflammatory or infectious hepatic lesions, or (3) hepatic malignancy (metastatic disease or lymphoma).
Assessment / Plan
# LEATHA pneumonia
# CGD on prophylactic posaconazole and Bactrim.
-sputum contaminated specimen
-Urine legionella Ag neg (not sensitive test)
-Add-on urine streptococcal antigen.
-dc outpt cipro
-Start ceftriaxone IV and po azithromycin.
-Monitor for improvement.
-DC airborne isolation. No risk factors for TB exposure. Also 2021 bronch AFB cx neg.
#New 6.3mm RUL nodule
-hx RUL lung nodules (CT 09/2021) s/p bronch 11/08/2021 ([facility]), norm exam; AFB cx neg, fungal cx neg, aerobic cx light growth resp jorge.
04/30/2022 CT chest ([facility]): 'small focus of subsegmental atelectasis along the posterior aspect and inferior aspect of RUL and lingula'
- Pulm following
#New multiple small hepatic lesions and splenomegaly.
-04/30/2022 CT chest: upper abdomen unremarkalbe.
-Consider CT abd/pelvis.
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
Chronic Granulomatous Disease dx'd age 5, follows with [facility], on prophylactic posaconazole, Bactrim
Right lower lobectomy due to pneumonia, empyema, age 1
Bronchiectasis
Mild intermittent reactive airway disease
hx RUL lung nodules (09/2021) s/p bronch 11/08/2021 ([facility]), norm exam; AFB cx neg, fungal cx neg, aerobic cx light growth resp jorge.
04/30/2022 CT chest ([facility]): 'small focus of subsegmental atelectasis along the posterior aspect and inferior aspect of RUL and lingula'
COVID 19 infection (07/2024), treated
Care Review
Plan reviewed with: Physician (Dr. Prado)
[2024-08-30 12:26] VITALS: BMI 23.6
[2024-08-30] MEDS: ZITHROMAX 500 MG PO (13:51)
[2024-08-30] MEDS: STERILE WATER FOR INJECTION 20 ML IV (13:51)
[2024-08-30] MEDS: ROCEPHIN 2000 MG IV (13:51)
[2024-08-30 15:15] VITALS: BP 99/72
[2024-08-30] MEDS: LOVENOX 40 MG SC (17:31)
[2024-08-30] MEDS: NON-FORMULARY ITEM 300 MG PO (21:22)
[2024-08-30 23:38] VITALS: BP 133/82
[2024-08-31 06:46] LABS: Hematocrit 39.7 % (39.0-52.0); Hemoglobin 12.7 g/dL (13.0-18.0); Mean Corpuscular Hgb 24.1 pg (27.0-31.0); Mean Corpuscular Volume 75.3 fL (80.0-94.0); Mean Platelet Volume 9.7 fL (7.4-10.4); Platelet Count 431 10^3/uL (130-400); Red Blood Cell Count 5.27 10^6/uL (4.70-6.10); Red Cell Dist. Width 16.1 % (11.5-14.5); White Blood Cell Count 13.2 10^3/uL (4.8-10.8)
[2024-08-31 07:07] LABS: Calcium 9.3 mg/dl (8.4-10.2); Glucose 98 mg/dl (70-99); Potassium 4.7 mmol/L (3.5-5.1)
[2024-08-31 07:17] LABS: Blood Urea Nitrogen 13 mg/dl (9-20); Carbon Dioxide 23 mmol/L (22-30); Chloride 98 mmol/L (98-107); Estimated Creatinine Clearance 96 ml/min; Sodium 137 mmol/L (135-145); eGFR > 60.00
[2024-08-31 07:25] VITALS: BP 116/75
[2024-08-31] MEDS: ZITHROMAX 500 MG PO (07:48)
[2024-08-31] MEDS: BACTRIM DS 800 MG/160 MG 1 TABLET PO ×2 (07:48→21:01)
[2024-08-31] MEDS: MUCINEX 600 MG PO ×2 (07:48→21:01)
--- NOTE | 2024-08-31 08:17 | W.PN.HOSP.TC ---
Today's Communication/Plan
-
cont abx as per ID
check CT abd/pelvis w/ IV and oral contrast
Assessment / Plan
Assessment / Plan
Physical Exam
General: Well Developed, Well Nourished and No Apparent Distress
HEENT: NormoCephalic, Moist mucous membranes and Atraumatic
Respiratory: Clear
Cardiac: S1/S2 and Regular Rhythm; No Murmur or Rub
GI: Soft, Non Tender, Non Distended and Normal Bowel Sounds; No Organomegaly
Musculoskeletal: No Clubbing, No Cyanosis and No Edema
Skin: No Rash
Neuro: AO x 3 and Nonfocal/grossly intact
Psych: Calm
44M history of chronic granulomatous disease/immunosuppressant chronically on Bactrim and and posaconazole, follows painter plate at [place], p/w cough, fever and sob. onset 10 days ago. Approximately 11 days ago, had an abnormal chest x-ray that
confirmed pneumonia, his painter plate prescribed cipro then changed to Levaquin. no fever since then, but cough and sob persisted. Denied FOLEY, dizzy or syncopal episode. denied chest pain. denied abdominal pain,n,v,d,denied dysuria or hematuria.
chest x ray with MODERATE to SEVERE LEFT UPPER LOBE PNEUMONIA which appears to have mildly increased since 08/20/2024. admitted for further management.
#community acquired pneumonia
-wbc 14.9
-chest x ray with MODERATE to SEVERE LEFT UPPER LOBE PNEUMONIA which appears to have mildly increased since 08/20/2024.
-follow blood suputum cultures
-ID and Pulm eval appreciated
-cipro switched to IV ceftriaxone azithromycin as per ID
#chronic granulomatous disease
-s/p right lower lobectomy
-chronically on Bactrim and Posaconazole,cont
-follows [facility] painter plate
CT chest appreciated
1. LARGE 10.2 cm DENSE LEFT UPPER LOBE AIRSPACE CONSOLIDATION (predominantly in the superior segment of the lingula). Diagnostic possibilities are (1) SEVERE LEFT UPPER LOBE PNEUMONIA, (2) less likely an inflammatory airspace consolidation, or (3)
less likely lung cancer.
2. New 6.3 mm solid pulmonary nodule in the posterior segment of the right upper lobe.
3. Mild scarring in the lateral basilar segment of the right lower lobe at the site of a suspected previous pulmonary wedge resection.
4. Mild left-sided mediastinal and left hilar lymphadenopathy.
5. Moderate splenomegaly.
6. Multiple small low-attenuation lesions in the liver. Diagnostic possibilities are (1) benign hepatic tumors, (2) inflammatory or infectious hepatic lesions, or (3) hepatic malignancy (metastatic disease or lymphoma).
Repeat CT chest in 6 months as per pulm
check CT Abd w/ IV and oral contrast
#DVT prophylaxis
-Lovenox
#CODE status
-full code
I spent a total of 40 minutes with the patient or on the floor. More than 50% of this time involved counseling and coordination of care.
Anticipated Discharge: 24 - 48 hours
Subjective/Interval History
-
Date of Service: August 31, 2024
Patient notes improvement in overall symptoms though cough persists.
Objective Data
-
Labs:
Laboratory Results
08/31/24
06:08
WBC 13.2 H
Hgb 12.7 L
Hct 39.7
Plt Count 431 H D
Sodium 137
Potassium 4.7
Chloride 98
Carbon Dioxide 23
BUN 13
Creatinine 0.9
Glucose 98
Calcium 9.3
Vital Signs:
Vital Signs
Temp Pulse Resp BP Pulse Ox
98.2 F 75 16 133/82 98
08/30/24 23:38 08/30/24 23:38 08/30/24 23:38 08/30/24 23:38 08/30/24 23:38
I&O
08/30/24 08/31/24 09/01/24
06:59 06:59 06:59
Intake Total 480 / 480 1440 / 1440
Balance 480 / 480 1440 / 1440
--- NOTE | 2024-08-31 09:20 | W.PN.PUL.V3 ---
Today's Communication / Plan
-
Wean oxygen
Antitussives and mucolytic's as needed
Ceftriaxone and azithromycin continue in addition to Bactrim and posaconazole which are his outpatient prophylactic medications
Isolation discontinued
Assessment
-
44-year-old with history of chronic granulomatous disease/immunosuppressed chronically on Bactrim and antifungals followed by immunology at [facility] presented with 10 days of fever, cough, shortness of breath unresponsive to outpatient Cipro-admitted for
pneumonia/isolated to rule out TB-pulmonary consulted for pneumonia/shortness of breath/cough 08/30/2024.
Community-acquired pneumonia unresponsive to outpatient Cipro in immunocompromised patient
Leukocytosis
Mild xpfxue-oumekgikxu-swtlykyvns 11.9
Conditions present prior to admission:
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
Bronchiectasis-mild left lower lobe
Pulmonary nodule-incidentally noted CT 2016-3 mm right middle lobe and new 6.3 mm pulmonary nodule right upper lobe 08/29/2024
History bronchoscopy 11/08/20217816-[id number] exam, AFB fungal and cultures negative
Right lower lobectomy.
[place] teeth extraction.
Plan
History consistent with community-acquired pneumonia-likely bacterial, however, with his chronic granulomatous disease bacterial and fungal infections and even tuberculosis are considerations
Supplemental oxygen as needed
Isolation for now
Nebulizers if needed-currently not bronchospastic
Aspiration precautions
Antitussives as needed
Follow radiographically to ensure clearing
Infectious disease evaluation-pending
Isolation discontinued
Note: Bronchoscopy 10/2021 negative for AFB
QuantiFERON test pending
Urine Legionella negative
Sputum culture 08/29/2024-few WBCs, mixed bacteria
Blood cultures negative
Empiric antibiotics-currently on chronic Bactrim in addition to Cipro and posaconazole chronically
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
Frequent signs of infection include lung, skin, lymph nodes and liver
Comment organisms include Aspergillus, staff aureus, Pseudomonas cepacia, Serratia, and nocardia
Chronic Bactrim and posaconazole continues
He continues with gardening/soil, hiking, swimming in fresh water.
Patient contacted his hook up driver-no record of previous TB testing
DVT prophylaxis-on Lovenox
Outpatient pulmonary follow-up of pneumonia and pulmonary nodules-recommend CT chest in 6 months
Diagnostic data:
Chest x-ray 08/19/2024-left upper lobe pneumonia
Chest x-ray 08/29/2024-moderate to severe left upper lobe pneumonia mildly increased since 08/20/2024
CT chest 08/03/2017-mild left lower lobe bronchiectasis, small noncalcified right middle lobe pulmonary nodule measuring [address] chest 08/29/2024-large 10 cm area of dense left upper lobe airspace consolidation, new 6.3 mm solid pulmonary nodule right upper lobe, moderate splenomegaly, multiple small low-attenuation lesions in the liver
Subjective Data
-
Date of Service:
Date of Service: August 31, 2024
Chief Complaint: Pulmonary Follow Up and Dyspnea Follow Up
Subjective:
Still has a nonproductive cough, overall slightly better, no chest pain, shortness of breath or abdominal pain
Review of Systems
General: Other (Per HPI)
Objective Data
Data Reviewed
Vital Signs / I&O:
Vital Signs
Temp Pulse Resp BP Pulse Ox
98.4 F 74 18 116/75 99
08/31/24 07:25 08/31/24 07:25 08/31/24 07:25 08/31/24 07:25 08/31/24 07:25
Intake and Output
08/30/24 08/31/24 09/01/24
06:59 06:59 06:59
Intake Total 480 / 480 1440 / 1440
Balance 480 / 480 1440 / 1440
SaO2: 99
Physical Exam
General: Respiratory Distress (n) and Comfortable
HEENT: Normocephalic, Anicteric and Moist Mucous Membranes
Cardiovascular: Regular Rhythm
Respiratory: Wheeze (n), Crackles (Rare left basilar), Rhonchi (n), Non-Labored Respirations, Accessory Resp Muscle Use (n) and Stridor (n)
GI: Soft, Non Distended and Non Tender
Neurology: Awake, Alert and No Motor Deficits
Skin: Warm, Good Color, Cyanosis (n), Jaundice (n) and Rash (n)
Labs/Micro/Reports
Lab Data
08/31/24 06:08
08/31/24 06:08
Microbiology
08/29/24 20:06 Blood/Venous Blood Culture - Preliminary
No Growth in 24 hours- Final report to follow
08/29/24 20:06 Blood/Venous Blood Culture - Preliminary
No Growth in 24 hours- Final report to follow
08/29/24 22:52 Urine Legionella Urinary Antigen - Final
Negative for Legionella pneumophila Serogroup 1 antigen.
A negative result does not rule out the possiblity of
Legionella infection due to other serogroups or species of
Legionella. Clinical correlation is recommended.
08/29/24 22:52 Urine Streptococcus pneumoniae Antigen (M - Final
Negative for Streptococcus pneumoniae antigen.
A negative result does not exclude infection with
Streptococcus pneumoniae. Clinical correlation is
recommended.
08/29/24 21:01 Sputum Respiratory Culture - Final
08/29/24 21:01 Sputum Gram Stain - Final
[2024-08-31] MEDS: OMNIPAQUE 50 ML PO (10:16)
--- NOTE | 2024-08-31 12:10 | W.PN.ID1 ---
Date of Service
Date of Service: August 31, 2024
Today's Communication
Continue ceftriaxone/azithromycin.
CT a/p.
Assessment / Plan
# LEATHA pneumonia
# CGD on prophylactic posaconazole and Bactrim.
-sputum contaminated specimen
-Urine legionella Ag, Strep pneumo Ag neg (not sensitive test)
- Continue ceftriaxone IV and po azithromycin (d2)
-Monitor for improvement.
#New 6.3mm RUL nodule
-hx RUL lung nodules (CT 09/2021) s/p bronch 11/08/2021 ([facility]), norm exam; AFB cx neg, fungal cx neg, aerobic cx light growth resp jorge.
04/30/2022 CT chest ([facility]): 'small focus of subsegmental atelectasis along the posterior aspect and inferior aspect of RUL and lingula'
- Pulm following
#New multiple small hepatic lesions and splenomegaly.
-04/30/2022 CT chest: upper abdomen unremarkalbe.
-For CT abd/pelvis.
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
Chronic Granulomatous Disease dx'd age 5, follows with [facility], on prophylactic posaconazole, Bactrim
Right lower lobectomy due to pneumonia, empyema, age 1
Bronchiectasis
Mild intermittent reactive airway disease
hx RUL lung nodules (09/2021) s/p bronch 11/08/2021 ([facility]), norm exam; AFB cx neg, fungal cx neg, aerobic cx light growth resp jorge.
04/30/2022 CT chest ([facility]): 'small focus of subsegmental atelectasis along the posterior aspect and inferior aspect of RUL and lingula'
COVID 19 infection (07/2024), treated
Chief Complaint
-: Pneumonia
Subjective / Review of Systems
Dry cough is the same.
Overall feeling slightly better.
Vital Signs / Physical Exam
Vital Signs
Vital Signs
Temp Pulse Resp BP Pulse Ox
98.4 F 74 18 116/75 99
08/31/24 07:25 08/31/24 07:25 08/31/24 07:25 08/31/24 07:25 08/31/24 09:20
Physical Exam
Constitutional: No Acute Distress and Comfortable
Cardiovascular: Regular Rate and S1/S2
Pulmonary: Clear
Gastrointestinal: Soft, Non Tender, Non Distended and Normal Bowel Sounds
Genito-Urinary: Negative CVA Tenderness
Extremities: Negative Edema
Neurological: AO x 3
Objective Data
Lab Data
Lab Results
08/31/24 06:08
08/31/24 06:08
Estimated Creat Clear 96 ml/min 08/31/24 06:08
Lactic Acid Cancelled 08/29/24 23:00
Total Bilirubin 0.5 mg/dl (0.2-1.3) 08/29/24 17:34
AST 32 U/L (17-59) 08/29/24 17:34
ALT 49 U/L (0-50) 08/29/24 17:34
Alkaline Phosphatase 189 U/L (38-126) H 08/29/24 17:34
Most recent labs reviewed.
Micro Results:
08/29/24 20:06 Blood Culture - Preliminary
Blood/Venous No Growth in 24 hours- Final report to follow
08/29/24 20:06 Blood Culture - Preliminary
Blood/Venous No Growth in 24 hours- Final report to follow
08/29/24 22:52 Legionella Urinary Antigen - Final
Urine Negative for Legionella pneumophila Serogroup 1 antigen.
A negative result does not rule out the possiblity of
Legionella infection due to other serogroups or species of
Legionella. Clinical correlation is recommended.
Streptococcus pneumoniae Antigen (M - Final
Negative for Streptococcus pneumoniae antigen.
A negative result does not exclude infection with
Streptococcus pneumoniae. Clinical correlation is
recommended.
08/29/24 21:01 Respiratory Culture - Final
Sputum Gram Stain - Final
08/29/[address]:
1. LARGE 10.2 cm DENSE LEFT UPPER LOBE AIRSPACE CONSOLIDATION (predominantly in the superior segment of the lingula). Diagnostic possibilities are (1) SEVERE LEFT UPPER LOBE PNEUMONIA, (2) less likely an inflammatory airspace consolidation, or (3)
less likely lung cancer.
2. New 6.3 mm solid pulmonary nodule in the posterior segment of the right upper lobe.
3. Mild scarring in the lateral basilar segment of the right lower lobe at the site of a suspected previous pulmonary wedge resection.
4. Mild left-sided mediastinal and left hilar lymphadenopathy.
5. Moderate splenomegaly.
6. Multiple small low-attenuation lesions in the liver. Diagnostic possibilities are (1) benign hepatic tumors, (2) inflammatory or infectious hepatic lesions, or (3) hepatic malignancy (metastatic disease or lymphoma).
[2024-08-31] MEDS: ROCEPHIN 2000 MG IV (14:22)
[2024-08-31] MEDS: STERILE WATER FOR INJECTION 20 ML IV (14:22)
--- NOTE | 2024-08-31 16:55 | CM ---
Reviewed chart, met with patient to obtain information for assessment. Patient stated that he lives with his in a two story home with two steps to enter. He described himself as independent with all ADLs, personal care, dressing and bathing. He
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 He ambulates without device. He denied any DME at home.
Patient has never had VN services.
He has not been to a SNF.
Patient has a prescription plan and uses, [facility] in [place] on [address] for all of his medications.
His provider is, Nhung Arana.
Patient stated that he does not feel that he will have any needs and would like to return home when cleared for discharge.
Plan: Case management will continue to follow and assist with discharge planning. Home when stable.
[2024-08-31 17:00] VITALS: BP 118/68
[2024-08-31] MEDS: LOVENOX 40 MG SC (17:19)
[2024-08-31] MEDS: NON-FORMULARY ITEM 300 MG PO (21:04)
[2024-08-31] MEDS: ROBITUSSIN DM 5 ML PO (21:12)
[2024-08-31 22:30] VITALS: BP 133/78
[2024-09-01 07:03] LABS: Hematocrit 37.8 % (39.0-52.0); Hemoglobin 12.2 g/dL (13.0-18.0); Mean Corp Hgb Conc. 32.3 g/dL (33.0-37.0); Mean Corpuscular Hgb 24.1 pg (27.0-31.0); Mean Corpuscular Volume 74.7 fL (80.0-94.0); Mean Platelet Volume 9.8 fL (7.4-10.4); Platelet Count 327 10^3/uL (130-400); Red Blood Cell Count 5.06 10^6/uL (4.70-6.10)
[2024-09-01 07:20] LABS: Blood Urea Nitrogen 12 mg/dl (9-20); Calcium 8.9 mg/dl (8.4-10.2); Carbon Dioxide 24 mmol/L (22-30); Chloride 101 mmol/L (98-107); Estimated Creatinine Clearance 96 ml/min; Glucose 95 mg/dl (70-99); Potassium 4.5 mmol/L (3.5-5.1); Sodium 138 mmol/L (135-145); eGFR > 60.00
[2024-09-01 07:25] VITALS: BP 110/64
--- NOTE | 2024-09-01 07:38 | W.PN.HOSP.TC ---
Today's Communication/Plan
-
cont abx as per ID
check MRI abd w/wo contrast
Assessment / Plan
Assessment / Plan
Physical Exam
General: Well Developed, Well Nourished and No Apparent Distress
HEENT: NormoCephalic, Moist mucous membranes and Atraumatic
Respiratory: Clear
Cardiac: S1/S2 and Regular Rhythm; No Murmur or Rub
GI: Soft, Non Tender, Non Distended and Normal Bowel Sounds; No Organomegaly
Musculoskeletal: No Clubbing, No Cyanosis and No Edema
Skin: No Rash
Neuro: AO x 3 and Nonfocal/grossly intact
Psych: Calm
44M history of chronic granulomatous disease/immunosuppressant chronically on Bactrim and and posaconazole, follows social worker health services at [facility], p/w cough, fever and sob. onset 10 days ago. Approximately 11 days ago, had an abnormal chest x-ray that
confirmed pneumonia, his social worker health services prescribed cipro then changed to Levaquin. no fever since then, but cough and sob persisted. Denied FOLEY, dizzy or syncopal episode. denied chest pain. denied abdominal pain,n,v,d,denied dysuria or hematuria.
chest x ray with MODERATE to SEVERE LEFT UPPER LOBE PNEUMONIA which appears to have mildly increased since 08/20/2024. admitted for further management.
#community acquired pneumonia
-wbc 14.9
-chest x ray with MODERATE to SEVERE LEFT UPPER LOBE PNEUMONIA which appears to have mildly increased since 08/20/2024.
-follow blood suputum cultures
-ID and Pulm eval appreciated
-cipro switched to IV ceftriaxone azithromycin as per ID
#chronic granulomatous disease
-s/p right lower lobectomy
-chronically on Bactrim and Posaconazole,cont
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
CT chest appreciated
1. LARGE 10.2 cm DENSE LEFT UPPER LOBE AIRSPACE CONSOLIDATION (predominantly in the superior segment of the lingula). Diagnostic possibilities are (1) SEVERE LEFT UPPER LOBE PNEUMONIA, (2) less likely an inflammatory airspace consolidation, or (3)
less likely lung cancer.
2. New 6.3 mm solid pulmonary nodule in the posterior segment of the right upper lobe.
3. Mild scarring in the lateral basilar segment of the right lower lobe at the site of a suspected previous pulmonary wedge resection.
4. Mild left-sided mediastinal and left hilar lymphadenopathy.
5. Moderate splenomegaly.
6. Multiple small low-attenuation lesions in the liver. Diagnostic possibilities are (1) benign hepatic tumors, (2) inflammatory or infectious hepatic lesions, or (3) hepatic malignancy (metastatic disease or lymphoma).
Repeat CT chest in 6 months as per pulm
CT Abd/pelvis w/ IV and oral contrast appreciated hepatic lesions less likely malignant but not ruled out
Checking MRI abd w/wo IV contrast
#DVT prophylaxis
-Lovenox
#CODE status
-full code
I spent a total of 35 minutes with the patient or on the floor. More than 50% of this time involved counseling and coordination of care.
Anticipated Discharge: Within 24 hours
Subjective/Interval History
-
Date of Service: September 01, 2024
Patient reports overall improvement in symptoms though coughing persists.
Objective Data
-
Labs:
Laboratory Results
09/01/24
06:06
WBC 9.0
Hgb 12.2 L
Hct 37.8 L
Plt Count 327 D
Sodium 138
Potassium 4.5
Chloride 101
Carbon Dioxide 24
BUN 12
Creatinine 0.9
Glucose 95
Calcium 8.9
Vital Signs:
Vital Signs
Temp Pulse Resp BP Pulse Ox
98.3 F 80 16 133/78 96
08/31/24 22:30 08/31/24 22:30 08/31/24 22:30 08/31/24 22:30 08/31/24 22:30
I&O
11/09/01/24 09/02/24
06:59 06:59 06:59
Intake Total 1440 / 1440 360 / 360
Output Total 300 / 300
Balance 1440 / 1440 60 / 60
[2024-09-01] MEDS: BACTRIM DS 800 MG/160 MG 1 TABLET PO ×2 (08:14→21:18)
[2024-09-01] MEDS: ZITHROMAX 500 MG PO (08:14)
[2024-09-01] MEDS: MUCINEX 600 MG PO ×2 (08:14→21:18)
--- NOTE | 2024-09-01 10:44 | W.PN.PUL.V3 ---
Today's Communication / Plan
-
.
Antibiotics.
Increase activity.
Mucolytic's and antitussives as needed.
Outpatient pulmonary follow-up
Assessment
-
44-year-old with history of chronic granulomatous disease/immunosuppressed chronically on Bactrim and antifungals followed by immunology at [facility] presented with 10 days of fever, cough, shortness of breath unresponsive to outpatient Cipro-admitted for
pneumonia/isolated to rule out TB-pulmonary consulted for pneumonia/shortness of breath/cough 08/30/2024.
Community-acquired pneumonia unresponsive to outpatient Cipro in immunocompromised patient
Leukocytosis
Mild burvjo-nvfrdbwwid-chawvmcmns 11.9
Conditions present prior to admission:
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
Bronchiectasis-mild left lower lobe
Pulmonary nodule-incidentally noted CT 2016-3 mm right middle lobe and new 6.3 mm pulmonary nodule right upper lobe 08/29/2024
History bronchoscopy 11/08/20213260-Bjubxegob-euowcj exam, AFB fungal and cultures negative
Right lower lobectomy.
Festus teeth extraction.
Plan
History consistent with community-acquired pneumonia-likely bacterial, however, with his chronic granulomatous disease bacterial and fungal infections and even tuberculosis are considerations
Supplemental oxygen as needed
Isolation for now
Nebulizers if needed-currently not bronchospastic
Aspiration precautions
Antitussives as needed
Follow radiographically to ensure clearing
Infectious disease following-correspondence reviewed
Isolation discontinued
Note: Bronchoscopy 10/2021 negative for AFB
QuantiFERON test pending
Urine Legionella negative
Sputum culture 08/29/2024-few WBCs, mixed bacteria
Blood cultures negative
Empiric antibiotics-currently on chronic Bactrim in addition to Cipro and posaconazole chronically
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
Frequent signs of infection include lung, skin, lymph nodes and liver
Comment organisms include Aspergillus, staff aureus, Pseudomonas cepacia, Serratia, and nocardia
Chronic Bactrim and posaconazole continues
He continues with gardening/soil, hiking, swimming in fresh water.
Patient contacted his resident advisor-no record of previous TB testing
DVT prophylaxis-on Lovenox
Outpatient pulmonary follow-up of pneumonia and pulmonary nodules-recommend CT chest in 6 months
Diagnostic data:
Chest x-ray 08/19/2024-left upper lobe pneumonia
Chest x-ray 08/29/2024-moderate to severe left upper lobe pneumonia mildly increased since 08/20/2024
CT chest 08/03/2017-mild left lower lobe bronchiectasis, small noncalcified right middle lobe pulmonary nodule measuring [address] chest 08/29/2024-large 10 cm area of dense left upper lobe airspace consolidation, new 6.3 mm solid pulmonary nodule right upper lobe, moderate splenomegaly, multiple small low-attenuation lesions in the liver
Subjective Data
-
Date of Service:
Date of Service: September 01, 2024
Chief Complaint: Pulmonary Follow Up and Dyspnea Follow Up
Subjective:
Overall cough somewhat improved, no complaints of worsening shortness of breath, no chest pain or abdominal pain
Review of Systems
General: Other ( per HPI)
Objective Data
Data Reviewed
Vital Signs / I&O:
Vital Signs
Temp Pulse Resp BP Pulse Ox
98.4 F 84 17 110/64 100
09/01/24 07:25 09/01/24 07:25 09/01/24 07:25 09/01/24 07:25 09/01/24 07:25
Intake and Output
08/31/24 09/01/24 09/02/24
06:59 06:59 06:59
Intake Total 1440 / 1440 360 / 360
Output Total 300 / 300
Balance 1440 / 1440 60 / 60
SaO2: 100
Physical Exam
General: Respiratory Distress (n) and Comfortable
HEENT: Normocephalic, Anicteric and Moist Mucous Membranes
Cardiovascular: Regular Rhythm
Respiratory: Wheeze (n), Crackles (Rare left basilar), Rhonchi (n), Non-Labored Respirations, Accessory Resp Muscle Use (n) and Stridor (n)
GI: Soft, Non Distended and Non Tender
Neurology: Awake, Alert and No Motor Deficits
Skin: Warm, Good Color, Cyanosis (n), Jaundice (n) and Rash (n)
Labs/Micro/Reports
Lab Data
09/01/24 06:06
09/01/24 06:06
Microbiology
08/29/24 20:06 Blood/Venous Blood Culture - Preliminary
No Growth in 48 hours- Final report to follow
08/29/24 20:06 Blood/Venous Blood Culture - Preliminary
No Growth in 48 hours- Final report to follow
08/29/24 22:52 Urine Legionella Urinary Antigen - Final
Negative for Legionella pneumophila Serogroup 1 antigen.
A negative result does not rule out the possiblity of
Legionella infection due to other serogroups or species of
Legionella. Clinical correlation is recommended.
08/29/24 22:52 Urine Streptococcus pneumoniae Antigen (M - Final
Negative for Streptococcus pneumoniae antigen.
A negative result does not exclude infection with
Streptococcus pneumoniae. Clinical correlation is
recommended.
08/29/24 21:01 Sputum Respiratory Culture - Final
08/29/24 21:01 Sputum Gram Stain - Final
[2024-09-01 13:17] LABS: Iron 45 ug/dl (49-181)
[2024-09-01 13:28] LABS: Percent Saturation 18 % (20-50); Total Iron Binding Capacity 240 ug/dl (261-462)
--- NOTE | 2024-09-01 13:56 | W.PN.ID1 ---
Date of Service
Date of Service: September 01, 2024
Today's Communication
- Continue ceftriaxone IV and po azithromycin (d3)
-At time of discharge, transition to cefdinir 300mg po bid plus azithromycin 500mg po qd through 09/12/24.
-Repeat CXR in 4 to 6 weeks to follow improvement of LEATHA opacity.
Assessment / Plan
# LEATHA pneumonia
# CGD on prophylactic posaconazole and Bactrim.
-sputum contaminated specimen
-Urine legionella Ag, Strep pneumo Ag neg (not sensitive test)
- Continue ceftriaxone IV and po azithromycin (d3)
-At time of discharge, transition to cefdinir 300mg po bid plus azithromycin 500mg po qd through 09/12/24.
- Repeat CXR in 4 to 6 weeks to follow improvement of LEATHA opacity.
#New 6.3mm RUL nodule
-hx RUL lung nodules (CT 09/2021) s/p bronch 11/08/2021 ([facility]), AFB cx neg, fungal cx neg, aerobic cx light growth resp jorge.
04/30/2022 CT chest ([facility]): 'small focus of subsegmental atelectasis along the posterior aspect and inferior aspect of RUL and lingula'
- Pulm recommends CT in 6 months.
#New multiple small hepatic lesions and splenomegaly.
-04/30/2022 CT chest: upper abdomen unremarkable.
-08/31/2024 CT a/p: numerous subcm hypodense hepatic lesions
- For MRI abd, per hospitalist
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
Chronic Granulomatous Disease dx'd age 5, follows with [facility] [employer], on prophylactic posaconazole, Bactrim
Right lower lobectomy due to pneumonia, empyema, age 1
Bronchiectasis
Mild intermittent reactive airway disease
hx RUL lung nodules (09/2021) s/p bronch 11/08/2021 ([facility]), norm exam; AFB cx neg, fungal cx neg, aerobic cx light growth resp jorge.
04/30/2022 CT chest ([facility]): 'small focus of subsegmental atelectasis along the posterior aspect and inferior aspect of RUL and lingula'
COVID 19 infection (07/2024), treated
Chief Complaint
-: Pneumonia
Subjective / Review of Systems
He continues to feel better.
Cough also with some improvement.
Vital Signs / Physical Exam
Vital Signs
Vital Signs
Temp Pulse Resp BP Pulse Ox
98.4 F 84 17 110/64 100
09/01/24 07:25 09/01/24 07:25 09/01/24 07:25 09/01/24 07:25 09/01/24 10:44
Physical Exam
Constitutional: No Acute Distress and Comfortable
Cardiovascular: Regular Rate and S1/S2
Pulmonary: Clear
Gastrointestinal: Soft, Non Tender and Non Distended
Neurological: AO x 3
Objective Data
Lab Data
Lab Results
09/01/24 06:06
09/01/24 06:06
Estimated Creat Clear 96 ml/min 09/01/24 06:06
Lactic Acid Cancelled 08/29/24 23:00
Total Bilirubin 0.5 mg/dl (0.2-1.3) 08/29/24 17:34
AST 32 U/L (17-59) 08/29/24 17:34
ALT 49 U/L (0-50) 08/29/24 17:34
Alkaline Phosphatase 189 U/L (38-126) H 08/29/24 17:34
Most recent labs reviewed.
Micro Results:
08/29/24 20:06 Blood Culture - Preliminary
Blood/Venous No Growth in 48 hours- Final report to follow
08/29/24 20:06 Blood Culture - Preliminary
Blood/Venous No Growth in 48 hours- Final report to follow
08/29/24 22:52 Legionella Urinary Antigen - Final
Urine Negative for Legionella pneumophila Serogroup 1 antigen.
A negative result does not rule out the possiblity of
Legionella infection due to other serogroups or species of
Legionella. Clinical correlation is recommended.
Streptococcus pneumoniae Antigen (M - Final
Negative for Streptococcus pneumoniae antigen.
A negative result does not exclude infection with
Streptococcus pneumoniae. Clinical correlation is
recommended.
08/29/24 21:01 Respiratory Culture - Final
Sputum Gram Stain - Final
08/29/[address]:
1. LARGE 10.2 cm DENSE LEFT UPPER LOBE AIRSPACE CONSOLIDATION (predominantly in the superior segment of the lingula). Diagnostic possibilities are (1) SEVERE LEFT UPPER LOBE PNEUMONIA, (2) less likely an inflammatory airspace consolidation, or (3)
less likely lung cancer.
2. New 6.3 mm solid pulmonary nodule in the posterior segment of the right upper lobe.
3. Mild scarring in the lateral basilar segment of the right lower lobe at the site of a suspected previous pulmonary wedge resection.
4. Mild left-sided mediastinal and left hilar lymphadenopathy.
5. Moderate splenomegaly.
6. Multiple small low-attenuation lesions in the liver. Diagnostic possibilities are (1) benign hepatic tumors, (2) inflammatory or infectious hepatic lesions, or (3) hepatic malignancy (metastatic disease or lymphoma).
08/31/24 CT a/p with oral and IV contrast: There are numerous subcentimeter hypodense hepatic lesions which are not definitely characterized as simple cysts. These may represent hemangiomas, cysts or less likely hepatic metastasis or microabscesses.
Further evaluation with MRI abdomen may be considered. Focal fatty infiltration adjacent to the falciform ligament. Splenomegaly measuring 15.4 cm.
Care Review
Plan reviewed with: Physician (Dr. Prado)
[2024-09-01] MEDS: STERILE WATER FOR INJECTION 20 ML IV (14:15)
[2024-09-01] MEDS: ROCEPHIN 2000 MG IV (14:15)
[2024-09-01 14:24] LABS: Folate 6.4 ng/ml (2.76-20)
[2024-09-01 15:45] LABS: Vitamin B12 630 pg/ml (239-931)
[2024-09-01 17:16] LABS: Quantiferon Mitogen minus NIL 2.57 IU/mL; Quantiferon NIL 0.07 IU/mL; Quantiferon Plus TB2 minus NIL 0.02 IU/mL (<=0.34); Quantiferon TB Gold Plus Negative (Negative)
[2024-09-01] MEDS: LOVENOX 40 MG SC (17:17)
[2024-09-01] MEDS: NON-FORMULARY ITEM 300 MG PO (21:18)
[2024-09-01] MEDS: ROBITUSSIN DM 5 ML PO (21:18)
[2024-09-01 23:11] VITALS: BP 112/74
[2024-09-02] MEDS: BACTRIM DS 800 MG/160 MG 1 TABLET PO (07:33)
[2024-09-02] MEDS: ZITHROMAX 500 MG PO (07:33)
[2024-09-02] MEDS: MUCINEX 600 MG PO (07:33)
[2024-09-02 07:34] VITALS: BP 140/80
--- NOTE | 2024-09-02 08:33 | W.PN.HOSP.TC ---
Addendum entered and electronically signed by Kenia Prado MD 09/02/24 20:06:
possible gram neg pneumonia
Addendum entered and electronically signed by Kenia Prado MD 09/02/24 13:24:
mild Anemia
Iron studies appreciated likely Anemia of Chronic disease
Original Note:
Today's Communication/Plan
-
discharge
Assessment / Plan
Assessment / Plan
Physical Exam
General: Well Developed, Well Nourished and No Apparent Distress
HEENT: NormoCephalic, Moist mucous membranes and Atraumatic
Respiratory: Clear
Cardiac: S1/S2 and Regular Rhythm; No Murmur or Rub
GI: Soft, Non Tender, Non Distended and Normal Bowel Sounds; No Organomegaly
Musculoskeletal: No Clubbing, No Cyanosis and No Edema
Skin: No Rash
Neuro: AO x 3 and Nonfocal/grossly intact
Psych: Calm
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 onset 10 days ago. Approximately 11 days ago, had an abnormal chest x-ray that
confirmed pneumonia, his contractor buyer prescribed cipro then changed to Levaquin. no fever since then, but cough and sob persisted. Denied FOLEY, dizzy or syncopal episode. denied chest pain. denied abdominal pain,n,v,d,denied dysuria or hematuria.
chest x ray with MODERATE to SEVERE LEFT UPPER LOBE PNEUMONIA which appears to have mildly increased since 08/20/2024. admitted for further management.
#community acquired pneumonia
-wbc 14.9
-chest x ray with MODERATE to SEVERE LEFT UPPER LOBE PNEUMONIA which appears to have mildly increased since 08/20/2024.
-follow blood suputum cultures
-ID and Pulm eval appreciated
-cipro switched to IV ceftriaxone azithromycin, ceftriaxone further switched to cefdinir for discharge,
-Cefdinir Azithromycin to continue through 09/12/24 and CXR to be repeated in 4-6 wks to follow up LEATHA opacity
-patient since improved, medically stable for discharge home with outpatient follow up recommendations.
#chronic granulomatous disease
-s/p right lower lobectomy
-chronically on Bactrim and Posaconazole,cont
-follows [facility] contractor buyer
CT chest appreciated
1. LARGE 10.2 cm DENSE LEFT UPPER LOBE AIRSPACE CONSOLIDATION (predominantly in the superior segment of the lingula). Diagnostic possibilities are (1) SEVERE LEFT UPPER LOBE PNEUMONIA, (2) less likely an inflammatory airspace consolidation, or (3)
less likely lung cancer.
2. New 6.3 mm solid pulmonary nodule in the posterior segment of the right upper lobe.
3. Mild scarring in the lateral basilar segment of the right lower lobe at the site of a suspected previous pulmonary wedge resection.
4. Mild left-sided mediastinal and left hilar lymphadenopathy.
5. Moderate splenomegaly.
6. Multiple small low-attenuation lesions in the liver. Diagnostic possibilities are (1) benign hepatic tumors, (2) inflammatory or infectious hepatic lesions, or (3) hepatic malignancy (metastatic disease or lymphoma).
Repeat CT chest in 6 months as per pulm
CT Abd/pelvis w/ IV and oral contrast appreciated hepatic lesions less likely malignant but not ruled out
MRI abd w/wo IV contrast noted no acute findings, lesions most likely benign follow up MRI in 6 months recommended
#DVT prophylaxis
-Lovenox
#CODE status
-full code
Medically stable for discharge home with outpatient follow up recommendations.
Total Time Preparing Discharge ___40____ minutes including examination of the patient, summary of the hospital stay, instructions for continuing care to all relevant caregivers; and preparation of discharge records, prescriptions, and referral
forms if necessary.
Anticipated Discharge: Today
Subjective/Interval History
-
Date of Service: September 02, 2024
No acute distress. Reports overall feeling well. Denies new acute issues. Eager to go home.
Objective Data
-
Vital Signs:
Vital Signs
Temp Pulse Resp BP Pulse Ox
98.9 F 72 16 140/80 98
09/02/24 07:34 09/02/24 07:34 09/02/24 07:34 09/02/24 07:34 09/02/24 07:34
I&O
09/01/24 09/02/24 09/03/24
06:59 06:59 06:59
Intake Total 360 / 360 480 / 480
Output Total 300 / 300
Balance 60 / 60 480 / 480
--- NOTE | 2024-09-02 10:11 | W.PN.PUL.V3 ---
Today's Communication / Plan
-
Wean oxygen
Increase activity
Antibiotics per infectious disease
Outpatient pulmonary follow-up
Outpatient radiographic follow-up
Assessment
-
44-year-old with history of chronic granulomatous disease/immunosuppressed chronically on Bactrim and antifungals followed by immunology at [facility] presented with 10 days of fever, cough, shortness of breath unresponsive to outpatient Cipro-admitted for
pneumonia/isolated to rule out TB-pulmonary consulted for pneumonia/shortness of breath/cough 08/30/2024.
Community-acquired pneumonia unresponsive to outpatient Cipro in immunocompromised patient
Leukocytosis
Mild qrsatl-uidpykrbzn-uatoebhanc 11.9
Conditions present prior to admission:
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
Bronchiectasis-mild left lower lobe
Pulmonary nodule-incidentally noted CT 2017-3 mm right middle lobe and new 6.3 mm pulmonary nodule right upper lobe 08/29/2024
History bronchoscopy 11/08/20211321-[id number] exam, AFB fungal and cultures negative
Right lower lobectomy.
[place] teeth extraction.
Plan
History consistent with community-acquired pneumonia-likely bacterial, however, with his chronic granulomatous disease bacterial and fungal infections and even tuberculosis are considerations-see below
Supplemental oxygen as needed-currently on room air
Isolation discontinued
Nebulizers if needed-currently not bronchospastic
Aspiration precautions
Antitussives as needed
Follow radiographically to ensure clearing-chest x-ray in 4-6 weeks
Infectious disease following-correspondence reviewed
Isolation discontinued
Note: Bronchoscopy 10/2021 negative for AFB
QuantiFERON test pending
Urine Legionella negative
Sputum culture 08/29/2024-few WBCs, mixed bacteria
Blood cultures negative
Empiric antibiotics-currently on chronic Bactrim and posaconazole chronically
Omnicef plus azithromycin through 09/12/2024
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
Frequent signs of infection include lung, skin, lymph nodes and liver
Comment organisms include Aspergillus, staff aureus, Pseudomonas cepacia, Serratia, and nocardia
Chronic Bactrim and posaconazole continues
He continues with gardening/soil, hiking, swimming in fresh water.
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
DVT prophylaxis-on Lovenox
Discharge planning
Outpatient pulmonary follow-up of pneumonia and pulmonary nodules-chest x-ray in 4-6 weeks to follow-up on pneumonia and recommend CT chest in 6 months follow-up on pulmonary nodules
Diagnostic data:
Chest x-ray 08/19/2024-left upper lobe pneumonia
Chest x-ray 08/29/2024-moderate to severe left upper lobe pneumonia mildly increased since 08/20/2024
CT chest 08/03/2017-mild left lower lobe bronchiectasis, small noncalcified right middle lobe pulmonary nodule measuring [address] chest 08/29/2024-large 10 cm area of dense left upper lobe airspace consolidation, new 6.3 mm solid pulmonary nodule right upper lobe, moderate splenomegaly, multiple small low-attenuation lesions in the liver
Subjective Data
-
Date of Service:
Date of Service: September 02, 2024
Chief Complaint: Pulmonary Follow Up and Dyspnea Follow Up
Subjective:
Overall feels better, cough diminished, slept better, no shortness of breath at rest, no chest pain, productive cough, or abdominal pain
Review of Systems
General: Other (Per HPI)
Objective Data
Data Reviewed
Vital Signs / I&O:
Vital Signs
Temp Pulse Resp BP Pulse Ox
98.9 F 72 16 140/80 98
09/02/24 07:34 09/02/24 07:34 09/02/24 07:34 09/02/24 07:34 09/02/24 07:34
Intake and Output
09/01/24 09/02/24 09/03/24
06:59 06:59 06:59
Intake Total 360 / 360 480 / 480
Output Total 300 / 300
Balance 60 / 60 480 / 480
SaO2: 98
Physical Exam
General: Respiratory Distress (n) and Comfortable
HEENT: Normocephalic, Anicteric and Moist Mucous Membranes
Cardiovascular: Regular Rhythm
Respiratory: Wheeze (n), Crackles (Rare left basilar), Rhonchi (n), Non-Labored Respirations, Accessory Resp Muscle Use (n) and Stridor (n)
GI: Soft, Non Distended and Non Tender
Neurology: Awake, Alert and No Motor Deficits
Skin: Warm, Good Color, Cyanosis (n), Jaundice (n) and Rash (n)
Labs/Micro/Reports
Lab Data
09/01/24 06:06
09/01/24 06:06
Microbiology
08/29/24 20:06 Blood/Venous Blood Culture - Preliminary
No Growth in 72 hours- Final report to follow
08/29/24 20:06 Blood/Venous Blood Culture - Preliminary
No Growth in 72 hours- Final report to follow
08/29/24 22:52 Urine Legionella Urinary Antigen - Final
Negative for Legionella pneumophila Serogroup 1 antigen.
A negative result does not rule out the possiblity of
Legionella infection due to other serogroups or species of
Legionella. Clinical correlation is recommended.
08/29/24 22:52 Urine Streptococcus pneumoniae Antigen (M - Final
Negative for Streptococcus pneumoniae antigen.
A negative result does not exclude infection with
Streptococcus pneumoniae. Clinical correlation is
recommended.
08/29/24 21:01 Sputum Respiratory Culture - Final
08/29/24 21:01 Sputum Gram Stain - Final
[2024-09-02] MEDS: OMNICEF 300 MG PO (10:35)
--- NOTE | 2024-09-02 12:22 | PN.CDI ---
CDI
- -
CDI:
Physician Documentation Request
Admit Date: 08/29/24 20:54
Dear Doctor Eve,
Clinical Indicators:
Patient admitted with community acquired pneumonia; PMH includes chronic granulomatous disease.
08/29 Update note, ' Non-resolving pneumonia - LEATHA pneumonia in immunocompromised patient who appears to be failing outpatient antibiotics....Suspect resistant bacteria vs fungal infection.'
08/30 Pulmonary consult:'History consistent with community-acquired pneumonia-likely bacterial, however, with his chronic granulomatous disease bacterial and fungal infections and even tuberculosis are considerations'
09/01 ID PN, 'Continue ceftriaxone IV and po azithromycin (d3)-At time of discharge, transition to cefdinir 300mg po bid plus azithromycin 500mg po qd'
Based on the above, could you clarify in the Progress Notes further specificity regarding the known, suspected or likely type of pneumonia you are treating (recognizing the specific organism may not be known)?
Examples
Gram negative Pneumonia
Other type (please specify known or suspected type)
Unable to determine
Use of terms such as suspected, likely, concern for, or probable (associated with a specific diagnosis that is being evaluated, monitored, or treated as if it exists) are acceptable and can be coded in the inpatient setting, when documented at the
time of discharge.
Thank you,
Lorena Perez RN BSN
CDI Specialist
available via tiger text
Please use your independent medical judgment in providing your response.
--- NOTE | 2024-09-02 13:41 | W.DCSUMMARY ---
Discharge Summary
Discharge Data
Date of Admission: 08/29/24
Date of Discharge: 09/02/24
-
Pending Results: No
Discharge Plan
-
Patient Disposition: Home (Routine Discharge)
Discharge Diagnosis/Procedures: community acquired pneumonia
chronic granulomatous disease
New 6.3 mm solid pulmonary nodule in the posterior segment of the right upper lobe.
Multiple Hepatic Lesions likely Benign
Mild Anemia likely due to anemia of chronic disease
Condition: Fair
Diet: Regular
Activity: As tolerated
Driving Restrictions: As prior to admission
Bathing Restrictions: None
Others Tests: repeat Chest X-ray with primary care provider or Manager Oncology in 4-6 weeks of discharge to follow up left upper lobe consolidation/Pneumonia
Repeat CT chest with contrast with primary care provider or Manager Oncology in 6 months of discharge to follow up Pulmonary Nodule
Repeat Abd MRI with and without contrast with primary care provider in 6 months of discharge to follow up Hepatic Lesions.
Activity Restrictions/Additional Instructions:
Please follow up with primary care provider in 1 week of discharge and Manager Oncology in 4-6 weeks of discharge. Please continue follow up with all healthcare providers involved in your care.
Ciprofloxacin has been discontinued in favor of Cefdinir and Azithromcyin to continue treatment pneumonia. Antibiotics are recommended to continue through 09/12/24 then stop.
Mucinex and Robitussin DM have been prescribed for symptomatic treatment cough.
Please take medications as prescribed/recommended and follow up with primary care provider and/or other healthcare provider involved in your care for refills and/or further adjustments to your medication regimen as necessary.
Referrals:
Elvin Hooker MD [Family Provider] - in one week
Chidi Torres MD [Active] - in four to six weeks
(Dr. Torres or DISPLAY DESIGNER-Follow pneumonia
CT chest in 6 months follow-up nodules)
Prescriptions:
New
azithromycin 250 mg Tablet
500 mg PO DAILY 10 Days Qty: 20 0RF
Rx Instructions:
continue through 09/12/24 to complete treatment pneumonia
dextromethorphan-guaifenesin 10-100 mg/5 mL Syrup
5 ml PO Q4HPRN PRN (Reason: cough) Qty: 500 0RF
cefdinir 300 mg Capsule
300 mg PO Q12 Qty: 11 0RF
Rx Instructions:
continue through 09/12/24 to complete treatment pneumonia
guaifenesin 600 mg Tablet Extended Release 12hr
600 mg PO Q12 7 Days Qty: 14 0RF
Continued
sulfamethoxazole-trimethoprim 800-160 mg tablet
1 tab PO BID
acetaminophen 500 mg Tablet
1,000 mg PO Q6HPRN PRN (Reason: mild pain/fever)
posaconazole 100 mg tablet,delayed release (DR/EC)
300 mg PO HS
Discontinued
ciprofloxacin HCl 500 mg tablet
500 mg PO BID
Discharge Orders:
Discharge Patient (As Directed); Ordered 09/02/24
Ordered By: Kenia Prado
Discharge Date and Time
Print Language: GEORGIAN
[2024-09-02 14:38] VITALS: BP 123/76
--- NOTE | 2024-09-02 14:41 | W.PN.ID1 ---
Date of Service
Date of Service: September 02, 2024
Today's Communication
Can transition to cefdinir 300mg po bid plus azithromycin 500mg po qd through 09/12/24.
Assessment / Plan
# LEATHA pneumonia - improving
# CGD on prophylactic posaconazole and Bactrim.
-sputum contaminated specimen
-Urine legionella Ag, Strep pneumo Ag neg (not sensitive test)
- Can transition ceftriaxone IV and po azithromycin (d4) to cefdinir 300mg po bid plus azithromycin 500mg po qd through 09/12/24.
- Repeat CXR in 4 to 6 weeks to follow improvement of LEATHA opacity.
#New 6.3mm RUL nodule
-hx RUL lung nodules (CT 09/2021) s/p bronch 11/08/2021 ([facility]), AFB cx neg, fungal cx neg, aerobic cx light growth resp jorge.
04/30/2022 CT chest ([facility]): 'small focus of subsegmental atelectasis along the posterior aspect and inferior aspect of RUL and lingula'
- Pulm recommends CT in 6 months.
#New multiple small hepatic lesions and splenomegaly.
-04/30/2022 CT chest: upper abdomen unremarkable.
-08/31/2024 CT a/p: numerous subcm hypodense hepatic lesions
-09/01/2024 MRI abd - possible hepatic infarcts vs atypical hemangiomas.
To repeat MRI in 6 months.
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
Chronic Granulomatous Disease dx'd age 5, follows with [facility], on prophylactic posaconazole, Bactrim
Right lower lobectomy due to pneumonia, empyema, age 1
Bronchiectasis
Mild intermittent reactive airway disease
hx RUL lung nodules (09/2021) s/p bronch 11/08/2021 ([facility]), norm exam; AFB cx neg, fungal cx neg, aerobic cx light growth resp jorge.
04/30/2022 CT chest ([facility]): 'small focus of subsegmental atelectasis along the posterior aspect and inferior aspect of RUL and lingula'
COVID 19 infection (07/2024), treated
Chief Complaint
-: Pneumonia
Subjective / Review of Systems
Cough better. Overall, feels improved.
Vital Signs / Physical Exam
Vital Signs
Vital Signs
Temp Pulse Resp BP Pulse Ox
97.8 F 67 18 123/76 98
09/02/24 14:38 09/02/24 14:38 09/02/24 14:38 09/02/24 14:38 09/02/24 14:38
Physical Exam
Constitutional: No Acute Distress and Comfortable
Pulmonary: Clear
Gastrointestinal: Soft, Non Tender, Non Distended and Normal Bowel Sounds
Neurological: AO x 3
Objective Data
Lab Data
Lab Results
09/01/24 06:06
09/01/24 06:06
Estimated Creat Clear 96 ml/min 09/01/24 06:06
Lactic Acid Cancelled 08/29/24 23:00
Total Bilirubin 0.5 mg/dl (0.2-1.3) 08/29/24 17:34
AST 32 U/L (17-59) 08/29/24 17:34
ALT 49 U/L (0-50) 08/29/24 17:34
Alkaline Phosphatase 189 U/L (38-126) H 08/29/24 17:34
Most recent labs reviewed.
Micro Results:
08/29/24 20:06 Blood Culture - Preliminary
Blood/Venous No Growth in 72 hours- Final report to follow
08/29/24 20:06 Blood Culture - Preliminary
Blood/Venous No Growth in 72 hours- Final report to follow
08/29/24 22:52 Legionella Urinary Antigen - Final
Urine Negative for Legionella pneumophila Serogroup 1 antigen.
A negative result does not rule out the possiblity of
Legionella infection due to other serogroups or species of
Legionella. Clinical correlation is recommended.
Streptococcus pneumoniae Antigen (M - Final
Negative for Streptococcus pneumoniae antigen.
A negative result does not exclude infection with
Streptococcus pneumoniae. Clinical correlation is
recommended.
08/29/24 21:01 Respiratory Culture - Final
Sputum Gram Stain - Final
08/29/[address]:
1. LARGE 10.2 cm DENSE LEFT UPPER LOBE AIRSPACE CONSOLIDATION (predominantly in the superior segment of the lingula). Diagnostic possibilities are (1) SEVERE LEFT UPPER LOBE PNEUMONIA, (2) less likely an inflammatory airspace consolidation, or (3)
less likely lung cancer.
2. New 6.3 mm solid pulmonary nodule in the posterior segment of the right upper lobe.
3. Mild scarring in the lateral basilar segment of the right lower lobe at the site of a suspected previous pulmonary wedge resection.
4. Mild left-sided mediastinal and left hilar lymphadenopathy.
5. Moderate splenomegaly.
6. Multiple small low-attenuation lesions in the liver. Diagnostic possibilities are (1) benign hepatic tumors, (2) inflammatory or infectious hepatic lesions, or (3) hepatic malignancy (metastatic disease or lymphoma).
08/31/24 CT a/p with oral and IV contrast: There are numerous subcentimeter hypodense hepatic lesions which are not definitely characterized as simple cysts. These may represent hemangiomas, cysts or less likely hepatic metastasis or microabscesses.
Further evaluation with MRI abdomen may be considered. Focal fatty infiltration adjacent to the falciform ligament. Splenomegaly measuring 15.4 cm.
09/01/24 MRI Abdomen: Scattered small hypointense lesions in the liver. These are evident during the portal venous phase. These correspond to low-attenuation lesions of interest shown by the CT. No correlate on T2-weighted imaging. Many of these
have an amorphous configuration. These could represent hepatic infarcts. Other possibilities include unusual appearance of benign hemangiomas or, less likely, a neoplastic process. There are a few scattered hypervascular foci in the liver.
Differential diagnosis includes arterioportal shunts, flash filling benign dimensions, less likely malignancy.
== END 2024-09-02 15:10 | disposition home or self-care (01) | DRG 194 ==
LOC: 3 WEST ACU 20:54
PROVIDERS: Emergency Medicine; Registered Nurse; ADMITTING PHYSICIAN Internal Medicine; ATTENDING PHYSICIAN Internal Medicine; EMERGENCY PHYSICIAN Emergency Medicine; FAMILY PHYSICIAN Internal Medicine Geriatric Medicine; OTHER PHYSICIAN Internal Medicine Critical Care Medicine; OTHER PHYSICIAN Internal Medicine Infectious Disease
DX: J15.9 Unspecified bacterial pneumonia (principal); D84.81 Immunodeficiency due to conditions classified elsewhere; D71 Functional disorders of polymorphonuclear neutrophils; D63.8 Anemia in other chronic diseases classified elsewhere; K76.9 Liver disease, unspecified; Z90.2 Acquired absence of lung [part of]; Z86.16 Personal history of COVID-19; Z79.2 Long term (current) use of antibiotics; Z79.899 Other long term (current) drug therapy; Z88.8 Allergy status to other drugs, medicaments and biological substances
CPT/HCPCS: 71046; 71260; 74177; 74183; 80048; 80053; 82607; 82728; 82746; 83540; 83550; 83605; 85025; 85027; 86480; 87040; 87070; 87205; 87449; 87899; 94640; 99285; A9575; Q9967

== ENCOUNTER → 2024-10-17 13:19 | Outpatient (REF) | payer BC, SELFPAY | LOC: HWRAD 13:19 | PROVIDERS: ATTENDING PHYSICIAN Internal Medicine Geriatric Medicine | DX: J18.9 Pneumonia, unspecified organism (principal) | CPT/HCPCS: 71046 ==

== ENCOUNTER → 2025-01-30 10:56 | Outpatient (REF) | payer BC, SELFPAY | LOC: HWRAD 10:56 | PROVIDERS: ATTENDING PHYSICIAN Nurse Practitioner Adult Health; FAMILY PHYSICIAN Internal Medicine Geriatric Medicine | DX: J18.9 Pneumonia, unspecified organism (principal) | CPT/HCPCS: 71250 ==

== ENCOUNTER 2025-03-10 01:33 | Emergency (ER) | payer BC, SELFPAY ==
[2025-03-10 01:42] VITALS: BP 148/87
[2025-03-10 02:05] VITALS: BP 154/89
[2025-03-10 02:06] VITALS: BMI 26.3
[2025-03-10 02:47] VITALS: BP 119/78
[2025-03-10] MEDS: TORADOL 15 MG IM (02:48)
--- NOTE | 2025-03-10 02:52 | ED.GENMED ---
History of Present Illness
General
Chief Complaint: Ear Problem
Source: patient
Exam Limitations: none
Time Seen by Provider: 03/10/25 01:47
Nursing documentation reviewed up to this point in time: agreed with
History of Present Illness
History of Present Illness:
44-year-old male presenting to the emergency department today with concerns of ear fullness and discomfort seem to occur after a concert 1 week ago. Some ongoing pain today. Denies any fevers drainage any upper respiratory symptoms or additional
concerns. He is on chronic antibiotics for granulomatous disease.
Past History
Past History
ED Past Medical History: Other (Pneumonia)
ED Past Surgical History: Other (Right lobectomy)
Social History
Living: with family
Employment: Employed
Review of Systems
Review of Systems
Allergies reviewed?: Yes
All Other Systems: ROS reviewed and negative except as documented in HPI and ROS
Phy Exam
Physical Exam
Physical Exam:
GENERAL: Alert , in no apparent distress
EYE: pupils equal and reactive
NECK: Supple, no significant adenopathy.
ENT: o/p clr, mmm.
CARDIAC: Regular rate and rhythm .
LUNGS: Clear breath sounds bilaterally, no acute respiratory distress, no wheezes/rales/rhonchi
ABDOMEN: Soft, without focal tenderness, no r/g, no cvat
NEUROLOGICAL: Alert and oriented, no focal neuro deficits
SKIN: Warm and dry, skin intact.
MUSCULOSKELETAL: No edema, well perfused.
PSYCH: Normal and appropriate interaction.
Course
Orders/Labs/Results
Orders:
Orders
03/10/25 02:44
Ketorolac [Toradol] 15 mg IM NOW STA
Vital Signs
Initial and Last Documented VS:
Initial Vital Signs
Temp Pulse Resp BP Pulse Ox
98.2 F 60 16 148/87 100
03/10/25 01:42 03/10/25 01:42 03/10/25 01:42 03/10/25 01:42 03/10/25 01:42
Last Documented Vital Signs
Temp Pulse Resp BP Pulse Ox
98.2 F 60 16 154/89 98
03/10/25 01:42 03/10/25 01:42 03/10/25 01:42 03/10/25 02:05 03/10/25 02:30
MDM/Problems Addressed
MDM/Problems Addressed:
44-year-old male presenting to the emergency department today with concerns of bilateral ear fullness since a rock concert week ago. Here he generally looks well vital signs are normal no redness or warmth no signs of infection. No evidence of any
emergent pathology. He was advised to use anti-inflammatory medication but otherwise stable for discharge. Return precautions given.
*Critical Care Note
Total Time (30-74mins, 75-104mins- exclusive of procedures): Not Applicable
ED Attending Note
-
Portions of this chart may have been created with voice recognition software.� Occasional wrong word or��sound alike� substitutions may have occurred due to the inherent limitations of voice recognition software.
Discharge Plan
Departure
Patient Disposition: Home (Routine Discharge)
Date of Disposition: 03/10/25
Time of Disposition: 02:53
Patient with high blood pressure during this ER visit?: No
Condition: Good
Covid-19: Not Applicable
Discharge Problem:
Ear pain
Instructions: Ear pain - ED discharge instructions
Prescriptions:
New
meloxicam 15 mg tablet
15 mg PO DAILY Qty: 7 0RF
No Action
sulfamethoxazole-trimethoprim 800-160 mg tablet
1 tab PO BID
acetaminophen 500 mg Tablet
1,000 mg PO Q6HPRN PRN (Reason: mild pain/fever)
posaconazole 100 mg tablet,delayed release (DR/EC)
300 mg PO HS
dextromethorphan-guaifenesin 10-100 mg/5 mL Syrup
5 ml PO Q4HPRN PRN (Reason: cough) Qty: 500 0RF
guaifenesin 600 mg Tablet Extended Release 12hr
600 mg PO Q12 7 Days Qty: 14 0RF
azithromycin 500 mg tablet
500 mg PO DAILY 9 Days Qty: 9 0RF
Rx Instructions:
continue through 09/12/24 then stop
cefdinir 300 mg capsule
300 mg PO BID 9 Days Qty: 18 0RF
Rx Instructions:
continue through 09/12/24 then stop
Referrals:
Elvin Hooker MD [Family Provider] -
Activity Restrictions/Additional Instructions:
You came to the emergency department today with concerns of ear pain. Here had a reassuring assessment. Please take the meloxicam to help with symptoms. Return for any worsening, new or concerning symptoms.
Interventions
Interventions:
*Risk Screen - Suicide Last Done: 03/10/25 01:42
*General Assessment Last Done: 03/10/25 01:42
*Neglect/Abuse Screening Last Done: 03/10/25 01:42
*ED- Fall Risk Assessment Last Done: 03/10/25 02:06
*ED COVID-19 Vaccine History Last Done: 03/10/25 01:42
Discharge Date and Time
Print Language: NEPALI
== END 2025-03-10 03:14 | disposition home or self-care (01) ==
LOC: EMR 01:33
PROVIDERS: EMERGENCY PHYSICIAN Student in an Organized Health Care Education/Training Program; FAMILY PHYSICIAN Internal Medicine Geriatric Medicine
DX: H92.03 Otalgia, bilateral (principal); Z79.2 Long term (current) use of antibiotics
CPT/HCPCS: 99284; 96372

== ENCOUNTER → 2025-05-02 11:05 | Outpatient (REF) | payer BC, SELFPAY | LOC: HWRAD 11:05 | PROVIDERS: ATTENDING PHYSICIAN Internal Medicine Critical Care Medicine; FAMILY PHYSICIAN Internal Medicine Geriatric Medicine | DX: R91.1 Solitary pulmonary nodule (principal) | CPT/HCPCS: 71046 ==

== ENCOUNTER → 2025-07-21 12:34 | Outpatient (REF) | payer BC, SELFPAY | LOC: HWRAD 12:34 | PROVIDERS: ATTENDING PHYSICIAN Internal Medicine Critical Care Medicine; FAMILY PHYSICIAN Internal Medicine Geriatric Medicine | DX: R91.1 Solitary pulmonary nodule (principal) | CPT/HCPCS: 71250 ==

== ENCOUNTER 2025-08-16 06:08 | Day surgery (SDC) | payer BC, SELFPAY ==
[2025-08-16 09:15] VITALS: BMI 25.6
[2025-08-16 09:20] VITALS: BP 143/88
[2025-08-16 09:41] VITALS: BMI 25.6
[2025-08-16] MEDS: TYLENOL 1000 MG PO (09:45)
[2025-08-16] MEDS: CELEBREX 200 MG PO (09:46)
[2025-08-16] MEDS: NORMOSOL-R/PLASMALYTE-A 1000 IV (09:47)
[2025-08-16 11:55] VITALS: BP 143/88
[2025-08-16 12:45] VITALS: BP 114/79
[2025-08-16 13:15] VITALS: BP 104/78
[2025-08-16 13:40] VITALS: BP 117/86
== END 2025-08-16 13:49 | disposition home or self-care (01) ==
LOC: SDS 06:08
PROVIDERS: ATTENDING PHYSICIAN Orthopaedic Surgery Hand Surgery
DX: M75.42 Impingement syndrome of left shoulder (principal); M75.00 Adhesive capsulitis of unspecified shoulder
CPT/HCPCS: 29805